=== PATIENT | female | born 1955 | race Caucasian/White ===

== ENCOUNTER 2022-11-23 10:40 | Outpatient (AMB) | payer OTHER, SELFPAY ==
--- NOTE | 2022-11-23 11:04 | MHC.OFFVIS ---
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 Capellan for left knee pain. Hx of right total knee replacement with Dr. Capellan. States she has ongoing pain in knee for many years. She describes her left knee pain as sharp and severe in nature, 01/01. Her left knee pain has gotten worse over the last few years in spite of continued non operative treatments. She has tried Tylenol and anti-inflammatory medicines which gave her minimal relief. She has also done physical therapy for 12 weeks over the last 6 months which aggravated her pain. She has had multiple injections. The most recent injection gave her minimal relief. The patient has difficulty walking even short distances because of her pain. At this point her left knee pain is interfering with her activities of daily living and her ability to sleep well through the night. Allergies buprenorphine [From Suboxone] Allergy (Mild, Verified 11/23/22 11:11) unknow codeine Allergy (Mild, Verified 11/23/22 11:11) vomitting latex Allergy (Mild, Verified 11/23/22 11:11) hives naloxone [From Suboxone] Allergy (Mild, Verified 11/23/22 11:11) unknow Medication List - Last Reconciled 11/23/22 by Neil Capellan MD atorvastatin 20 mg PO BEDTIME levothyroxine 13 mcg PO DAILY linaclotide (Linzess) 72 mcg PO DAILY methocarbamol 500 mg PO BEDTIME milnacipran (Savella) 12.5 mg PO DAILY omeprazole 10 mg PO DAILY [facility] Surgical History (Updated 11/23/22 @ 11:12 by NATE Liriano) History of total right knee replacement Social History (Updated 11/23/22 @ 11:11 by NATE Liriano) Current occupational status: disabled 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 Physical Exam Vital Signs: BMI result Body Mass Index 32.6 Const Other: Well-nourished well-developed very friendly female awake alert and oriented x3 in no acute distress Extrem Other: Bilateral lower extremity examination shows good capillary refill, no skin lesions noted, normal sensation light touch Left knee examination shows a minimal effusion, palpable crepitus with range of motion, pain with range of motion, range of motion from -3 degrees to 115 degrees, no instability Results Reviewed Results Reviewed: X-rays of the patient's left knee show severe degenerative joint disease with grade 4 [id number] arthritis, subchondral sclerosis, osteophyte formation, no acute bony abnormalities Assessment & Plan Assessment & Plan (1) Arthritis of left knee: Code(s): M17.12 - Unilateral primary osteoarthritis, left knee Plan: Ms. Del Rosario presents with progressively worsening left knee pain due to end-stage degenerative joint disease. I had a lengthy discussion patient regarding the treatment options. At this point the patient has failed continued non operative treatments. The risks and benefits of left total knee replacement surgery were discussed at length with the patient. The patient wishes to proceed with surgery later this year or early next year. She will contact my office to pick a surgery date when she is ready to do so. I will see her back 1 week prior to her surgery to answer any final questions that she might have. Feel free to call me at any time should questions regarding her orthopedic management arise. Thank you very much for asking me to see this very friendly patient. I spent 22 minutes in reviewing the patient's records and imaging studies, seeing the patient and documenting in the medical record. Orders: Orders XR knee LT 3V Today M25.562 - Pain in left knee Coding Level of Care Code Est Pt Level 2 (26439) Diagnoses Arthritis of left knee M17.12
[2022-11-23 11:09] VITALS: BMI 32.6
== END 2022-11-23 11:33 | disposition home or self-care (01) ==
PROVIDERS: PCP Internal Medicine; Visit Provider Orthopaedic Surgery
DX: M17.12 Unilateral primary osteoarthritis, left knee (principal)
CPT/HCPCS: 99212

== ENCOUNTER 2022-11-23 13:34 | Outpatient (REF) | payer OTHER, SELFPAY ==
--- NOTE | ~2022-11-23 | XR_ITS ---
EXAMINATION: XR KNEE, LEFT CLINICAL INFORMATION: Pain in left knee COMPARISON: None available. TECHNIQUE: Four views of the left knee. FINDINGS: No fracture. Probable small joint effusion.. There is moderate narrowing of the medial and patellofemoral joint compartment with large marginal osteophytes extending off the medial joint compartment. No abnormal soft tissue calcification. XR/XR knee LT 3V IMPRESSION: Moderate osteoarthritis.
== END 2022-11-23 13:35 | disposition home or self-care (01) ==
LOC: HO.HOSX 13:34
PROVIDERS: Visit Provider Orthopaedic Surgery
DX: M17.12 Unilateral primary osteoarthritis, left knee (principal)
CPT/HCPCS: 73562; 99212

== ENCOUNTER 2025-02-23 | Outpatient (REF) | payer OTHER, SELFPAY ==
--- OUTSIDE RECORDS SUMMARY | 2023-11-08 03:30 | XMS_ITS ---
Author Organization [facility] Address [address] [facility] [place] [address] Care Team Providers Care Diamond Cleaner Name Role Phone El Callejas Primary Care Provider Dannielle Echevarria [phone] Encounters Encounter Location Date Provider Diagnosis [address] [address] 11/08/2023 Dannielle Robles Plan Of Treatment No Information Progress Notes * [place] PLATAOB:1955 ( 69 yo F)Acc No.[id number]:11/08/2023 Progress Notes Patient: Leslie PAGE Provider: Lance Robles DPM :1955 A ge:68 Y S ex:Female Date:11/08/2023 Address:[address] [place], [place] [id number] Pcp:El Callejas Subjective: * Chief Complaints: * * Medical History: Objective: * Vitals: Assessment: Plan: * Treatment: * Images: * The named appointment provid er may or may not be the originator of this progress note, and it is not deemed complete until electronically signed by the appointment provider. Sign off status: Pending * Provider: Lance Robles DPM Date: 0 11/08/2023 Generated for Victor Manueli ford/Anahy/eTransmitting on: 0 04/15/2025 11:24 AM EST
--- OUTSIDE RECORDS SUMMARY | 2023-12-31 15:39 | XMS_ITS | Encounter Summary ---
Author Organization [facility] Address [address] [place] [address] Care Team Providers Care Oilseed Meat Presser Name Role Phone El Callejas MD Primary Care Provider [phone] Encounter Details Date Type Department Care Team (Latest Contact Info) Description 12/31/2023 4:39 PM EDT Hospital Encounter TH HISTORIC ENCOUNTERS EASTERN CONVERSION ONLY Lamont Oconnor DO [address] [facility] [address] [place] [address] Spondylolisthesis, lumbosacral region Social History Tobacco Use Types Packs/Day Years Used Date Smoking Tobacco: Former Cigarettes 0.5 9 0 1973 - 1982 Smokeless Tobacco: Never Alcohol Use Standard Drinks/Week Comments No 0 (1 standard drink = 0.6 oz pur e alcohol) Housing Instability Answer Date Recorde d Are you worried that in the next 2 months you may not have stable housing? No 07/08/2024 Food Access & Nutrition Answer Date Rec orded Do you have access to a vari ety of food including fruits and vegetables? Yes 07/08/2024 Access to Healthcare Answer Date Record ed Within the last 3 months, chantell tsai many times did you visit the emergency department for your medical care? 0 07/08/2024 Health Literacy Answer Date Recorded How often do you need to hav e someone help you when you read instructions, pamphlets, or other written material from your doctor or pharmacy? Never 07/08/2024 Caregiver: How often do you need to have someone help you when you read instructions, pamphlets, or other written material from your doctor or pharmacy? Not on file 07/08/2024 Financial Risk Answer Date Recorded How hard is it for you to pa y for the very basics like food, housing, medical care, and air conditioning / heating? Not very hard 07/08/2024 Transportation Answer Date Recorded Has the lack of transportati on kept you from meetings, work, or from getting things needed for daily living? No Has the lack of transportati on kept you from medical appointments or from getting medications? No 07/08/2024 Social Isolation Answer Date Recorded How often do you feel lonely or isolated from th ose around you? Rarely 07/08/2024 Food Risk Answer Date Recorded Within the past 12 months we worried whether our food would run out before we got money to buy more. Never true 07/08/2024 Within the past 12 months th e food we bought just didn't last and we didn't have money to get more. Never true 07/08/2024 Dependent Care Answer Date Recorded Do you need help finding or paying for care for your loved ones. For example, child specialist or elderly care for an older adult? No 07/08/2024 Education Answer Date Recorded Do you think completing more education or training, like finishing a GED, going to college, or learning a trade, would be helpful for you? No 07/08/2024 Employment and Income Answer Date Recor ded During the last four weeks, have you been actively looking for work? No 07/08/2024 Living Situation Answer Date Recorded What is your living situation? Unrecognized valu e 07/08/2024 Comments No Sex and Gender Information Value Date Recorded Sex Assigned at Not on file Legal Sex Female 9:04 PM EST Gender Identity Not on file Sexual Orientation Not on file documented as of this encounter Plan of Treatment Upcoming Encounters Date Type Department Care Team (Late st Contact Info) Description 12/20/2025 10:30 AM EDT Office Visit Gastroenterology - [address] [id number] Liliana Cosby PA [address] [address] documented as of this encounter Procedures Procedure Name Priority Date/Time Associated Diagnosis Comments CR SPINE LUMB FLEX AND EXTEN Routine 01/01/2024 7:55 AM EDT Spondylolisthesis, lumbosacral region documented in this encounter Results * CR SPINE LUMB FLEX AND EXTEN (01/01/2024 7:55 AM EDT) Anatomical Region Laterality Modality Radiographic Hellen ging 12/31/2023 4:47 PM EDT Narrative 01/01/2024 7:55 AM EDT [facility] Diagnostic Imaging Department [address] [place] [address] Patient: SHERLYNLESLIE /Age/Sex: 1955 - 68 - F Unit#: [id number] Location/Status: SPDIGEN/REG CLI Mnemonic/[facility] Order[facility] Physician: LAMONT OCONNOR DO CR Spine Lumb Flex and Exten - 12/31/23 - 170 Report Status:Signed HISTORY: The patient is a 68-year-old female with spondylolisthesis at the L5-S1 level. FINDINGS: Lateral radiographs of the lumbosacral spine in neutral, flexion, and extension positions is performed. The study demonstrates grade 2, 1.2 cm anterior spondylolisthesis of L5 relative to S1 measuring 1.2 cm on the extension and neutral views and 1.5 cm with flexion. The alignment of the bony structures is otherwise anatomic on lateral projection. No fracture is seen. No osteolytic or osteoblastic lesion is demonstrated. Spondylolysis of L5 is strongly suspected. There is narrowing of the L3-4, L4-5, and L5-S1 disc spaces consistent with degenerative disc disease. Densities in the abdomen are consistent with oral contrast material within colonic diverticuli. IMPRESSION: Grade 2 anterior spondylolisthesis of L5 relative to S1 measuring 1.2 cm on the extension and neutral views, and increasing to 1.5 cm with flexion. Spondylolysis of L5 is strongly suspected. There is degenerative disc disease at the L3-4, L4-5, and L5-S1 levels. Code 58909 Dictating Physician: SAGE GARCIA MD Electronically Signed by: SAGE GARCIA MD Dic Date/Time: 01/01/24 075 Sign date/Time: 01/01/24 075 Procedure Note Sage Garcia MD - 01/21/2024 [facility] Diagnostic Imaging Department [address] [place], [place] [id number] Patient: LESLIE PLATA /Age/Sex: 1955 - 68 - F Unit#: [id number] Location/Status: SPDIGEN/REG CLI Mnemonic[facility] Ordering Physician: LAMONT OCONNOR DO CR Spine Lumb Flex and Exten - 12/31/23 - 1702 Report Status:Signed HISTORY: The patient is a 68-year-old female with spondylolisthesis at theL5-S1 level. FINDINGS: Lateral radiographs of the lumbosacral spine in neutral,flexion, and extension positions is performed. The study demonstrates grade 2, 1.2 cm anterior spondylolisthesis of L5 relative to S1 measuring 1.2 cm on the extension and neutral views and 1.5 cm with flexion. The alignment of thebony structures is otherwise anatomic on lateral projection. No fracture isseen. No osteolytic or osteoblastic lesion is demonstrated. Spondylolysis of L5is strongly suspected. There is narrowing of the L3-4, L4-5, and L5-S1 discspaces consistent with degenerative disc disease. Densities in the abdomen are consistent with oral contrast materialwithin colonic diverticuli. IMPRESSION: Grade 2 anterior spondylolisthesis of L5 relative to [id number] 1.2 cm on the extension and neutral views, and increasing to 1.5 cm with flexion. Spondylolysis of L5 is strongly suspected. There is degenerativedisc disease at the L3-4, L4-5, and L5-S1 levels. Code 56008 Dictating Physician: SAGE GARCIA MD Electronically Signed by: SAGE GARCIA MD Dic Date/Time: 01/01/24 0750 Sign date/Time: 01/01/24 0755 Lamont Oconnor DO IMG XR PROCEDURES Final Result documented in this encounter Visit Diagnoses Diagnosis Spondylolisthesis, lumbosacral region documented in this encounter Care Teams Oilseed Meat Presser Relationship Specialty Start Date End Date El Callejas MD [address] [place] [address] PCP - General Internal Medicine 01/26/21 documented as of this encounter
--- NOTE | ~2025-02-23 | XR_ITS ---
EXAMINATION: XR KNEE 3 VIEWS LEFT HISTORY: M25.562 - Pain in left knee COMPARISON: Comparison is made with the prior examination dated 11/23/2022. FINDINGS: Four views of the left knee are submitted. Osseous mineralization is normal. There is no fracture or dislocation. There is severe osteoarthritis of the lateral compartment with joint space narrowing and osteophyte formation. There is moderate osteoarthritis of the patellofemoral compartment. The soft tissues are unremarkable. There is no joint effusion. XR/XR knee LT 3V IMPRESSION: Osteoarthritis of the left knee as described. Electronically signed by: Juarez Lopez MD 02/23/2025 08:58 AM [facility]
--- OUTSIDE RECORDS SUMMARY | 2025-04-13 10:00 | XMS_ITS | Encounter Summary ---
Author Organization [facility] Address [address] [place] [address] Care Team Providers Care Trousseau Consultant Name Role Phone El Callejas MD Primary Care Provider [phone] Reason for Referral * Imaging (Routine) - Pending Review Specialty Diagnoses / Procedures Referred By Shira howard Referred To Contact Cardiology Diagnoses Pre-op testing Heart murmur Procedures Transthoracic echocardiogram (TTE) complete with PRN contrast, bubble, strain, and 3D order panel OK TTE W 2D IMAGE COMPLETE W DOPPLER ECHO & COLOR FLOW DOPPLER ECHO OK TERESE 2D COMPLETE W/CONTRAST OR W & WO CONTRAST WITH DOPPLER El Callejas MD [address] [place] [address] Phone: tel: fax: [facility] Referral ID Status Reason Start Date Expiration Date V isits Requested Visits Authorized [id number] Pending Review 04/13/2025 04/13/2026 1 1 * Consultation (Routine) - Pending Review Specialty Diagnoses / Procedures Referred By Shira howard Referred To Contact Cardiology Diagnoses Abnormal EKG El Callejas MD [address] [place] [address] Phone: tel: fax: [facility] - [address] [place] [address] Phone: tel: fax: Referral ID Status Reason Start Date Expiration Date Visits Requested Visits Authorized [id number] Pending Review Specialty Services Required 04/13/2025 04/13/2026 1 1 Reason for Visit * Reason Comments Pre-op Exam Encounter Details Date Type Department Care Team (Late st Contact Info) Description 04/13/2025 10:00 AM EST Consult [facility] - [facility] [address] [place] [address] El Callejas MD [address] [place] [address] Pre-op testing (Primary Dx); Abnormal EKG; Heart murmur Social History Tobacco Use Types Packs/Day Years [...] for your loved ones. For example, child neurologist or elderly care for an older adult? [...] on file documented as of this encounter Last Filed Vital Signs Vital Sign Reading Time Taken Comments Blood Pressure 129/75 04/13/2025 10:26 AM EST Pulse 90 04/13/2025 10:01 AM EST Temperature - - Respiratory Rate - - Oxygen Saturation - - Inhaled Oxygen Concentration - - Weight 96.8 kg (213 lb 4.8 oz) 04/13/2025 10:01 AM EST Height 160 cm (5' 3 ) 04/13/2025 10:01 AM EST Body Mass Index 37.78 04/13/2025 10:01 AM EST documented in this encounter Progress Notes * El Callejas MD - 04/13/2025 10:00 AM EST Referring MD: Neil Capellan MD HPI: Ms. Del Rosario is a 69 y.o. year old female who is scheduled for left total knee replacement scheduled on 05/24/[address] Bernardo Capellan. She is here today for pre-operative consultation. Her functional status is greater than 4 METs as she can climb 2 flight of stairs without having any chest pain or shortness of breath. She has not had problems with anesthesia or bleeding. ROS: GENERAL: Negative for malaise, significant weight loss and fever HEENT: No changes in hearing or vision. No nosebleeds or other nasal problems NECK: Negative for lumps, goiter, pain, and significant neck swelling RESPIRATORY: No cough, wheezing or shortness of breath CARDIOVASCULAR: Negative for chest pain, leg swelling and palpitations GI: Negative for abdominal discomfort, changes in bowel habits, blood in stool or black stools : Negative for dysuria, frequency, and incontinence MUSCULOSKELETAL: Negative for joint pain or swelling, back pain and muscle pain. SKIN: No lesions, rash, or itching HEMATOLOGY/LYMPHOLOGY: No prolonged bleeding, easy bruising, or swollen lymph nodes ENDOCRINE: Negative for cold or heat intolerance, polyuria, polydipsia and goiter NEURO: No persistent headache, fainting, seizures, strokes, TIAs, weakness, numbness or tingling The remainder of review of systems is noncontributory. PAST MEDICAL HISTORY: Patient Active Problem List Diagnosis Date Noted Aortic stenosis 10/07/2024 Hiatal hernia 11/28/2023 Chronic back pain 11/28/2023 Allergic rhinitis 11/28/2023 History of depression 11/28/2023 Chronic sinusitis 05/28/2023 COVID 06/23/2021 Osteoarthritis, knee 11/15/2020 Prediabetes 11/07/2020 Varicose veins of both lower extremities with pain 02/02/2019 IBS (irritable bowel syndrome) 10/16/2018 Chronic headache disorder 10/16/2018 RLS (restless legs syndrome) 05/30/2018 Fibromyalgia 05/31/2015 Obstructive sleep apnea 02/14/2015 Hypothyroidism 07/20/2014 Hyperlipidemia 07/20/2014 GERD (gastroesophageal reflux disease) 07/20/2014 SOCIAL HISTORY: Social History Tobacco Use Smoking status: Former Current packs/day: 0.00 Average packs/day: 0.5 packs/day for 9.0 years (4.5 ttl pk-yrs) Types: Cigarettes Start date: 1973 Quit date: 1982 Years since quittin.7 Smokeless tobacco: Never Substance Use Topics Alcohol use: No FAMILY HISTORY: Family Status Relation Name Status Mother at age 76 Father Alive Brother Mitch at age 62 Brother joshua Daughter Alive Son Alive Neg Hx (Not Specified) No partnership data on file Family History[1] ACTIVE MEDICATIONS: Medications Taking[2] ALLERGIES: Buprenorphine-naloxone; Codeine; Levonorgestrel-ethinyl estrad; Pollen extracts; and Latex, naturalrubber PHYSICAL EXAM: Blood pressure 129/75, pulse 90, height 1.6 m (63 ), weight 96.8 kg (213 lb 4.8 oz). Body mass index is 37.78 kg/m??. APPEARANCE: Alert and in no acute distress, Normal, healthy, cooperative EYES: PERRLA, conjunctiva and sclera normal and normal fundal exam EARS: External ears normal. Canals clear. TMs normal. NOSE/SINUS: Nares normal. Septum midline. Mucosa normal. No drainage or sinus tenderness MOUTH/THROAT: no erythema, lesions, or exudates NECK: Neck supple, no adenopathy, thyroid symmetric and of normal size HEART: RRR with normal S1 and S2, no murmurs, no gallops, no JVD appreciated CHEST: non-tender LUNG: clear to auscultation bilaterally LYMPH NODES: grossly normal ABDOMEN: Bowel sounds normoactive, no bruits and soft, non-tender, without organomegaly or palpablemasses BACK: no pain to palpation and good flexion and extension EXTREMITIES: Extremities warm and well perfused without clubbing, cyanosis, or edema NEURO: Awake, alert and oriented x 3 and reflexes symmetrical SKIN: Skin color, texture, turgor normal. No rashes or lesions. LABS: Lab Results Component Value Date WBC 6.4 04/05/2025 HGB 13.2 04/05/2025 HCT 43.6 04/05/2025 MCV 83.4 04/05/2025 Lab Results Component Value Date NA 139 04/05/2025 K 4.6 04/05/2025 CO2 28 04/05/2025 CL 100 04/05/2025 BUN 21 04/05/2025 No results found for: INR , PTT Testing:acceptable EKG: unchanged from previous tracings, normal sinus rhythm. ASSESSMENT AND PLAN: 1. Pre-op testing 2. Abnormal EKG 3. Heart murmur Cardiac - Ms. Del Rosario clinical risk factors include none and female is scheduled for a intermediate risk procedure. Her functional capacity is estimated to be greater than 4 METs. She is, therefore, estimated to have an acceptable risk for the proposed procedure. Further cardiac workup is not warranted. Beta blockade perioperatively is not needed. Patient's EKG is unchanged from previous tracing. Has been previously worked up in the past for abnormal EKG but has not seen cardiology. Will refer patient to cardiology. Also has a heart murmur. Will order echocardiogram for further evaluation. Pulmonary - Her pulmonary risk factors include age > 50. Early ambulation and use of incentive spirometry, when appropriate, are encouraged. Medications - All scheduled inhaled medications should be taken the morning of surgery. NSAIDs ( ) should be discontinued at least 3 days before surgery. Please do not hesitate to contact me with any questions or concerns. Thank you for the courtesy of this consultation. El Callejas MD on 04/13/2025 at 11:01 AM EST cc: Neil Capellan MD [1] Family History Problem Relation Name Age of Onset Other (Other: Other) Mother multiple issues lots of pain, unsure exactly of what problems Arthritis Mother Arthritis Father Colon cancer Brother Mitch 61 Coronary artery disease Brother joshua ? Breast cancer Daughter 25 double mastectomy, reconstruction Ovarian cancer Neg Hx Uterine cancer Neg Hx [2] Outpatient Medications Marked as Taking for the 04/13/25 encounter (Consult) with El Callejas MD Medication Sig Dispense Refill atorvastatin (LIPITOR) 20 mg tablet TAKE 1 TABLET BY MOUTH DAILY 90 tablet 1 calcium carbonate 1,500 mg (600 mg elemental calcium) tablet Take 2 tablets (3,000 mg total) by mouth 1 (one) time each day. cholecalciferol (VITAMIN D-3) 25 mcg (1,000 unit) tablet TAKE 2 TABLETS BY MOUTH DAILY 180 tablet 1 cyanocobalamin (VITAMIN B-12) 1,000 mcg tablet TAKE 1 TABLET BY MOUTH 1 TIME EACH DAY 90 tablet 1 levothyroxine (SYNTHROID, LEVOTHROID) 150 mcg tablet TAKE 1 TABLET(150 MCG) BY MOUTH 1 TIME EACH DAY 90 tablet 1 Linzess 290 mcg capsule TAKE 1 CAPSULE(290 MCG) BY MOUTH 1 TIME EACH DAY 30 capsule 5 meclizine (ANTIVERT) 12.5 mg tablet Take 1 tablet (12.5 mg total) by mouth. methocarbamoL (ROBAXIN) 500 mg tablet Take 1 tablet (500 mg total) by mouth. omega-3 acid ethyl esters (LOVAZA) 1 gram capsule Take 1 capsule (1 g total) by mouth 1 (one) time each day. pantoprazole (PROTONIX) 40 mg EC tablet TAKE 1 TABLET BY MOUTH DAILY 90 tablet 1 sodium chloride (Fede 128) 2 % ophthalmic solution USE ONE DROP INTO BOTH EYES TID sodium chloride 5 % ophthalmic ointment APPLY INTO BOTH EYES QHS turmeric/turmeric ext/pepr ext (turmeric-turmeric ext-pepper) 500-3 mg capsule Take 1,000 mg by mouth. Ventolin HFA 90 mcg/actuation inhaler INHALE 2 PUFFS BY MOUTH EVERY 4 HOURS NEEDED FOR COUGH OR WHEEZING OR SHORTNESS OF BREATH 18 g 1 documented in this encounter Plan of Treatment Upcoming Encounters Date Type Department Care Team (Late st Contact Info) Description 12/20/2025 10:30 AM EDT Office Visit Gastroenterology - [address] [facility] [address] [place] [address] Liliana Cosby PA [address] [place] [address] Scheduled Orders Name Type Priority Associated Diagnoses Order Schedule Transthoracic echocardiogram (TTE) complete with PRN contrast, bubble, strain, and 3D order panel Echocardiography Routine Pre-op testing Heart murmur 1 Occurrences starting 04/13/2025 until 04/13/2026 Scheduled Referrals Name Type Priority Associated Diagnoses Order Schedule Ambulatory referral to Cardiology Outpatient Referral Routine Abnormal EKG 1 Occurrences starting 04/13/2025 until 04/13/2026 documented as of this encounter Procedures Procedure Name Priority Date/Time Associated Diagnosis Comments ECG 12-LEAD Routine 04/13/2025 10:03 AM EST Pre-op testing documented in this encounter Results * ECG 12 lead (04/13/2025 10:03 AM EST) Narrative El Callejas MD - 04/13/2025 11:01 AM EST Ordered and reviewed by Dr Callejas El Callejas MD ECG ORDERABLES Final Result documented in this encounter Visit Diagnoses Diagnosis Pre-op testing- Primary Unspecified pre-operative examination Abnormal EKG Nonspecific abnormal electrocardiogram (ECG) (EKG) Heart murmur Undiagnosed cardiac murmurs documented in this encounter Additional Health Concerns Assessment Noted Time PHQ-9 Depression Total Score: 0 07/09/19 25 1:21 PM EDT documented as of this encounter Care Teams Trousseau Consultant Relationship Specialty Start Date End Date El Callejas MD [address] [place] [address] PCP - General Internal Medicine 01/26/21 documented as of this encounter
--- OUTSIDE RECORDS SUMMARY | 2025-04-15 11:24 | XMS_ITS | Clinical Summary ---
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 8 Active methocarbamoL (ROBAXIN) 500 mg tablet Take 1 tablet (500 mg total) by mouth. 2 Active omega-3 acid ethyl esters (LOVAZA) 1 gram capsule Take 1 capsule (1 g total) by mouth 1 (one) time each day. 3 Active sodium chloride (Fede 128) 2 % ophthalmic solution USE ONE DROP INTO BOTH EYES TID 9 Active sodium chloride 5 % ophthalmic ointment APPLY INTO BOTH EYES QHS 9 Active turmeric/turmer ic ext/pepr ext (turmeric-turme yaniv ext-pepper) 500-3 mg capsule Take 1,000 mg by mouth. 2 Active calcium carbonate 1,500 mg (600 mg elemental calcium) tablet Take 2 tablets (3,000 mg total) by mouth 1 (one) time each day. Active milnacipran (Savella) 100 mg tablet Take 1 tablet (100 mg total) by mouth 2 (two) times a day. 180 tablet 1 5 Active levothyroxine (SYNTHROID, LEVOTHROID) 150 mcg tablet TAKE 1 TABLET(150 MCG) BY MOUTH 1 TIME EACH DAY 90 tablet 1 5 Active fezolinetant 45 mg tabletIndicatio ns:Menopausal hot flushes Take 1 tablet by mouth 1 (one) time each day. 30 tablet 5 5 05/31/19 26 Active Additional Information Patient not taking.Reported on 03/24/2025 cholecalciferol (VITAMIN D-3) 25 mcg (1,000 unit) tablet TAKE 2 TABLETS BY MOUTH DAILY 180 tablet 1 5 Active pantoprazole (PROTONIX) 40 mg EC tablet TAKE 1 TABLET BY MOUTH DAILY 90 tablet 1 5 Active cyanocobalamin (VITAMIN B-12) 1,000 mcg tablet TAKE 1 TABLET BY MOUTH 1 TIME EACH DAY 90 tablet 1 5 Active Linzess 290 mcg capsule TAKE 1 CAPSULE(290 MCG) BY MOUTH 1 TIME EACH DAY 30 capsule 5 5 Active Ventolin HFA 90 mcg/actuation inhaler INHALE 2 PUFFS BY MOUTH EVERY 4 HOURS NEEDED FOR COUGH OR WHEEZING OR SHORTNESS OF BREATH 18 g 1 5 Active atorvastatin (LIPITOR) 20 mg tablet TAKE 1 TABLET BY MOUTH DAILY 90 tablet 1 5 Active polyethylene glycol (MIRALAX) 17 gram packet Take 17 g by mouth 1 (one) time each day for 3 days. 51 g 3 5 03/27/19 26 Active Problems Problem Noted Date Diagnosed Date [...] Encounters Date Type Department Care Team Description 04/13/2025 10:00 AM EST Consult Internal Medicine - [address] [address] [place] [address] El Callejas MD Pre-op testing (Primary Dx); Abnormal EKG; Heart murmur 04/07/2025 5:56 PM EST - 04/07/2025 6:[address] [facility] Emergency [address] [place] [address] Epistaxis (Primary Dx) Discharge Disposition: Home or Self Care 04/05/2025 8:40 AM EST Lab Draw Station - [place] [address] [facility] [place] [address] Pre-op testing 04/05/2025 7:05 AM EST - 04/05/2025 11:59 PM EST Hospital Encounter [facility] CT Scan [address] [facility] [place] [phone] Upper abdominal pain Discharge Disposition: Home or Self Care 04/05/2025 Results [facility] [place] [phone] El Callejas MD 03/24/2025 11:30 AM EST Lab Draw Station - [place] [facility] [place] Upper abdominal pain; B12 deficiency 03/24/2025 11:00 AM EST Office Visit Internal Medicine - [address] [place] [phone] Cecil Sheth PA Upper abdominal pain (Primary Dx) 03/24/2025 Results Follow-Up Internal Medicine - [address] [place] [phone] Gloria Mckeon MA 02/15/2025 Telephone Internal Medicine - [address] [place] [phone] El Callejas MD 02/08/2025 Telephone Obstetrics and Gynecology - [address] [phone] Adelita Zuniga DO 01/19/2025 Telephone Internal Medicine - [address] [phone] El Callejas MD from Last 3 Months Immunizations Immunization Administration Dates Next Due Influenza Quadravalent, 0.5m l (Fluzone High-dose) 65yo and older 12/26/2021,01/12/2021,11/22/2018,2017,12/20/2016,12/24/2015 Influenza trivalent, 0.5mL ( Fluzone High-dose) 65yo and older 12/10/2022 Influenza trivalent, 0.5mL, preservative free (Fluarix; FluLaval; Fluzone) ages 6mo and older (Afluria) 3 years and older 11/10/2019,12/16/2017,12/20/2016,2015 Influenza trivalent, with preservative (Fluzone; Afluria) 6mo and older 02/02/2018,12/05/2014 Influenza, Unspecified 11/28/2023 [employer] SARS-CoV-2 COVID-19, mRNA, LNP-S, preservative free 12/09/2021,01/22/2021,07/09/2020,2020 [...] year repeat UPPER GASTROINTESTINAL ENDOSCOPY 09/24/2016 PROCEDURE: ND UPPER GI ENDOSCOPY PERFORMED; COMMENT: Performed on treatment with omeprazole; minimal antral gastritis; 4 cm hiatal hernia; CLOtest: OTHER SURGICAL HISTORY 08/2017 PROCEDURE: REPAIR PARAESOPHAGEAL HERNIA CHOLECYSTECTOMY 08/2017 PROCEDURE: HISTORICAL CHOLECYSTECTOMY; COMMENT: lap drake and repair HH. COLONOSCOPY 12/11/2018 PROCEDURE: HISTORICAL COLONOSCOPY; COMMENT: no polyps TOTAL KNEE ARTHROPLASTY 11/14/2020 Right PROCEDURE: ND ARTHRP KNE CONDYLE&PLATU MEDIAL&LAT COMPARTMENTS TOTAL KNEE ARTHROPLASTY Right PROCEDURE: HISTORICAL TOTAL KNEE REPLACE APPENDECTOMY PROCEDURE: ND APPENDECTOMY OTHER SURGICAL HISTORY Posterior laminectomy decompression [...] for your loved ones. For example, child life therapist or elderly care for an older adult? [...] Pulse 90 04/13/2025 10:01 AM EST Temperature 36.9 C (98.4 F) 04/07/2025 5:46 PM EST Respiratory Rate 16 04/07/2025 5:46 PM EST Oxygen Saturation 99% 04/07/2025 5:46 PM EST Inhaled Oxygen Concentration - - Weight 96.8 kg (213 lb 4.8 oz) 04/13/2025 10:01 AM EST Height 160 cm (5' 3 ) 04/13/2025 10:01 AM EST Body Mass Index 37.78 04/13/2025 10:01 AM EST Plan of Treatment Upcoming Encounters Date Type Department Care Team (Late st Contact Info) Description 12/20/2025 10:30 AM EDT Office Visit Gastroenterology - [address] [facility] [address] [place] [address] Liliana Cosby PA [address] [place] [address] Health Maintenance Due Date Last Done Comments Medicare Annual Wellness Visit 03/02/2022 Colorectal Cancer Screening: Colonoscopy 12/12/2023 12/11/2018, 12/11/2018 COVID-19 Vaccine ( season) 2024 12/09/2021, 01/22/2021, 07/09/2020, Additional history exists Influenza Vaccine (#1) 2024 , 12/10/2022, 12/26/2021, Additional history exists Depression Screening 03/25/2025 10/06/2024 Breast Cancer Screening 06/05/2025 06/06/19 24, 11/06/2022, [...] 11/27/2017 Pneumococcal Vaccine: 50+ Years Completed 12/10/2022 HIB Vaccines Aged Out No longer eligi [...] Routine 04/13/2025 10:03 AM EST Pre-op testing CBC WITH AUTO DIFFERENTIAL Routine 04/05/2025 8:51 AM EST Pre-op testing BASIC METABOLIC PANEL Routine 04/05/2025 8:51 AM EST Pre-op testing CBC AND DIFFERENTIAL Routine 04/05/2025 8:51 AM EST Pre-op testing CT ABDOMEN PELVIS WO CONTRAST Routine 04/05/2025 7:28 AM EST Upper abdominal pain CBC WITH AUTO DIFFERENTIAL Routine 03/24/2025 11:49 AM EST Upper abdominal pain VITAMIN B12 Routine 03/24/2025 11:49 AM EST B12 deficiency AMYLASE Routine 03/24/2025 11:49 AM EST Upper abdominal pain LIPASE Routine 03/24/2025 11:49 AM EST Upper abdominal pain CBC AND DIFFERENTIAL Routine 03/24/2025 11:49 AM EST Upper abdominal pain LIPID PANEL WITH REFLEX TO DIRECT LDL Routine 07/15/2024 9:13 AM EDT Mixed hyperlipidemia DIAGNOSTIC MAMMOGRAPHY INCLUDING CAD BILATERAL Routine 06/06/2023 1:39 PM EDT Other abnormal and inconclusive findings on diagnostic imaging of breast DXA BONE DENSITY STUDY 1+ SITS AXIAL SKEL Routine 10/18/2022 4:04 PM EDT Encounter for gynecological examination (general) (routine) without abnormal findings HM COLONOSCOPY Routine 12/11/2018 HEPATITIS C SCREENING Routine 01/30/2016 from Last 3 Months or Most Recently Relevant to Health Maintenance Results * ECG 12 lead (04/13/2025 10:03 AM EST) El Maxwell MD - 04/13/2025 11:01 AM EST Ordered and reviewed by Dr Callejas El Callejas MD ECG ORDERABLES Final Result * (ABNORMAL) CBC auto differential (04/05/2025 8:51 AM EST) Only the most recent of2 resultswithin the time period is included. WBC 6.4 4.8 - 10.8 K/mcL LAB HEMETOLOGY METHOD 04/05/2025 2:22 PM EST [facility] RBC 5.20(H) 3.80 - 4.80 M/mcL LAB HEMETOLOGY METHOD 04/05/2025 2:22 PM EST [facility] Hemoglobin 13.2 11.5 - 16.0 g/dL LAB HEMETOLOGY METHOD 04/05/2025 2:22 PM [facility] Hematocrit 43.6 35.0 - 47.0 % LAB HEMETOLOGY METHOD 04/05/2025 2:22 PM [facility] MCV 83.4 79.0 - 98.0 FL LAB HEMETOLOGY METHOD 04/05/2025 2:22 PM [facility] MCH 25.2(L) 27.0 - 32.0 pcg LAB HEMETOLOGY METHOD 04/05/2025 2:22 PM [facility] MCHC 30.3(L) 32.0 - 37.0 g/dL LAB HEMETOLOGY METHOD 04/05/2025 2:22 PM [facility] RDW 14.7 11.0 - 15.0 % LAB HEMETOLOGY METHOD 04/05/2025 2:22 PM [facility] Platelets 244 130 - 400 K/mcL LAB HEMETOLOGY METHOD 04/05/2025 2:22 PM [facility] MPV 12.1(H) 7.0 - 11.0 FL LAB HEMETOLOGY METHOD 04/05/2025 2:22 PM [facility] NRBC 0.0 <1.0 % LAB HEMETOLOGY METHOD 04/05/2025 2:22 PM [facility] NRBC Absolute 0.00 <0.10 K/mcL LAB HEMETOLOGY METHOD 04/05/2025 2:22 PM [facility] Neutrophils Relative 58.0 % LAB HEMETOLOGY METHOD 04/05/2025 2:22 PM [facility] Lymphocytes Relative 30.6 % LAB HEMETOLOGY METHOD 04/05/2025 2:22 PM [facility] Monocytes Relative 8.6 % LAB HEMETOLOGY METHOD 04/05/2025 2:22 PM [facility] Eosinophils Relative 1.4 % LAB HEMETOLOGY METHOD 04/05/2025 2:22 PM [facility] Basophils Relative 0.9 % LAB HEMETOLOGY METHOD 04/05/2025 2:22 PM [facility] Immature Granulocytes Relative 0.5 % LAB HEMETOLOGY METHOD 04/05/2025 2:22 PM [facility] Neutrophils Absolute 3.69 1.50 - 7.00 K/mcL LAB HEMETOLOGY METHOD 04/05/2025 2:22 PM [facility] Lymphocytes Absolute 1.95 1.00 - 5.00 K/mcL LAB HEMETOLOGY METHOD 04/05/2025 2:22 PM [facility] Monocytes Absolute 0.55 0.20 - 1.00 K/mcL LAB HEMETOLOGY METHOD 04/05/2025 2:22 PM [facility] Eosinophils Absolute 0.09 0.00 - 0.50 K/mcL LAB HEMETOLOGY METHOD 04/05/2025 2:22 PM [facility] Basophils Absolute 0.06 0.00 - 0.20 K/mcL LAB HEMETOLOGY METHOD 04/05/2025 2:22 PM [facility] Immature Granulocytes Absolute 0.03 0.00 - 0.03 K/mcL LAB HEMETOLOGY METHOD 04/05/2025 2:22 PM [facility] Blood Venous blood specimen / Unknown Venipuncture / Unknown 04/05/2025 8:51 AM EST 04/05/2025 8:51 AM EST us El Callejas MD LAB BLOOD ORDERABLES Final Resu lt [facility] [address] [place] [address], * (ABNORMAL) Basic metabolic panel (04/05/2025 8:51 AM EST) Sodium 139 133 - 145 mmol/L 04/05/2025 1:41 PM [facility] Potassium 4.6 3.5 - 5.5 mmol/L 04/05/2025 1:41 PM [facility] Chloride 100 96 - 110 mmol/L 04/05/2025 1:41 PM [facility] CO2 28 21 - 32 mmol/L 04/05/2025 1:41 PM [facility] Anion Gap 11 3 - 11 04/05/2025 1:41 PM [facility] Glucose 106(H) 70 - 100 mg/dL 04/05/2025 1:41 PM [facility] BUN 21 5 - 25 mg/dL 04/05/2025 1:41 PM [facility] Creatinine 0.73 0.50 - 1.10 mg/dL 04/05/2025 1:41 PM [facility] eGFR 90 >=60 mL/min/1. 73m2 04/05/2025 1:41 PM [facility] Comment:Calculation based on the Chronic Kidney Disease Epidemiology Collaboration (CKD-EPI) equation refit without adjustment for race. BUN/Creatinine Ratio 28.8 04/05/2025 1:41 PM [facility] Calcium 10.0 8.5 - 10.5 mg/dL 04/05/2025 1:41 PM [facility] Blood Venous blood specimen / Unknown Venipuncture / Unknown 04/05/2025 8:51 AM EST 04/05/2025 8:51 AM EST us El Callejas MD LAB BLOOD ORDERABLES Final Resu lt [facility] [address] [place] [address], * CT Abdomen Pelvis wo Contrast (04/05/2025 7:28 AM EST) Anatomical Region Laterality Modality Body Computed Tomogra phy 04/13/2025 12:5 5 PM EST Impressions 04/13/2025 12:58 PM EST 1. No acute abnormality in the abdomen or pelvis. 2. Extensive diverticulosis without evidence for acute diverticulitis. -------- FINAL REPORT -------- Dictated By: Marisol Mccoy Dictated Date: 04/13/2025 12:55 ET Assigned Physician: Marisol Mccoy Reviewed and Electronically Signed By: Marisol Mccoy Signed Date: 04/13/2025 12:58 ET Workstation ID: [id number] Transcribed By: Self Edit Transcribed Date: 04/13/2025 12:55 ET Narrative 04/13/2025 12:58 PM EST PROCEDURE: CT Abdomen and Pelvis without contrast INDICATION: Abdominal pain, acute, no prior medical history TECHNIQUE: CT of the abdomen and pelvis without contrast. Multiplanar reformats. The examination was performed utilizing dose reduction techniques. DLP: 1158 mGy/cm COMPARISON: No priors available. FINDINGS: LOWER THORAX: Lung bases are clear. Aortic valvular calcifications. HEPATOBILIARY: No focal liver lesions. Cholecystectomy. SPLEEN: No splenomegaly. PANCREAS: No focal mass or ductal dilatation. ADRENALS: No nodules. KIDNEYS/URETERS: Left renal cyst measuring 6.9 cm. No mass or hydronephrosis. No nephroureteral calculus. PELVIC ORGANS/BLADDER: Unremarkable. PERITONEUM / RETROPERITONEUM: No ascites or free air. No retroperitoneal lymphadenopathy. VESSELS: Scattered atherosclerotic calcifications throughout the aorta and its major branches. No aneurysm. GI TRACT: Extensive diverticulosis without evidence for acute diverticulitis. Early diverticulitis may be occult on CT. Moderate fecal loading throughout the colon. Postsurgical changes at the diaphragmatic hiatus of suspected Stu. BONES AND SOFT TISSUES: Postsurgical changes L4-S1 with mild anterolisthesis of L5 on S1. Small fat-containing inguinal hernias. Procedure Note Marisol Mccoy MD - 04/13/2025 PROCEDURE: CT Abdomen and Pelvis without contrast INDICATION: Abdominal pain, acute, no prior medical history TECHNIQUE: CT of the abdomen and pelvis without contrast. Multiplanarreformats. The examination was performed utilizing dose reductiontechniques. DLP: 1158 mGy/cm COMPARISON: No priors available. FINDINGS: LOWER THORAX: Lung bases are clear. Aortic valvular calcifications. HEPATOBILIARY: No focal liver lesions. Cholecystectomy. SPLEEN: No splenomegaly. PANCREAS: No focal mass or ductal dilatation. ADRENALS: No nodules. KIDNEYS/URETERS: Left renal cyst measuring 6.9 cm. No mass orhydronephrosis. No nephroureteral calculus. PELVIC ORGANS/BLADDER: Unremarkable. PERITONEUM / RETROPERITONEUM: No ascites or free air. No retroperitoneallymphadenopathy. VESSELS: Scattered atherosclerotic calcifications throughout the aorta andits major branches. No aneurysm. GI TRACT: Extensive diverticulosis without evidence for acutediverticulitis. Early diverticulitis may be occult on CT. Moderate fecalloading throughout the colon. Postsurgical changes at the diaphragmatichiatus of suspected Stu. BONES AND SOFT TISSUES: Postsurgical changes L4-S1 with mildanterolisthesis of L5 on S1. Small fat-containing inguinal hernias. IMPRESSION: 1. No acute abnormality in the abdomen or pelvis. 2. Extensive diverticulosis without evidence for acute diverticulitis. -------- FINAL REPORT -------- Dictated By: Marisol Mccoy Dictated Date: 04/13/2025 12:55 ET Assigned Physician: Marisol Mccoy Reviewed and Electronically Signed By: Marisol Mccoy Signed Date: 04/13/2025 12:58 ET Workstation ID: [id number] Transcribed By: Self Edit Transcribed Date: 04/13/2025 12:55 ET Cecil PATEL IMG CT PROCEDURES Final Result * Lipase (03/24/2025 11:49 AM EST) Lipase 31 12 - 53 unit/L 03/24/2025 3:58 PM EST [facility] Blood Venous blood specimen / Unknown Venipuncture / Unknown 03/24/2025 11:49 AM EST 03/24/2025 11:49 AM EST Cecil PATEL LAB BLOOD ORDERABLES Fi nal Result Performing Organization Address [facility] de Phone Number [facility] [address] [place] [address], [place] [phone] * Vitamin B12 (03/24/2025 11:49 AM EST) Pathologist [facility] Vitamin B-12 736 211 - 911 pcg/mL 03/24/2025 3:58 PM EST [facility] Blood Venous blood specimen / Unknown Venipuncture / Unknown 03/24/2025 11:49 AM EST 03/24/2025 11:49 AM EST Cecil PATEL LAB BLOOD ORDERABLES Fi nal Result Performing Organization Address [facility] de Phone Number [facility] [address] [place] [address], [place] [phone] * Amylase (03/24/2025 11:49 AM EST) [facility] Amylase 42 25 - 115 unit/L 03/24/2025 3:57 PM EST [facility] Blood Venous blood specimen / Unknown Venipuncture / Unknown 03/24/2025 11:49 AM EST 03/24/2025 11:49 AM EST Cecil PATEL LAB BLOOD ORDERABLES Fi nal Result Performing Organization Address [facility] de Phone Number [facility] [address] [place] [address], [place] [phone] * (ABNORMAL) Lipid panel with reflex to direct LDL (07/15/2024 9:13 AM EDT) [facility] Cholesterol 149 0 - 200 mg/dL LAB CHEMISTRY METHOD 07/15/2024 1:16 PM EDT [facility] Triglycerides 174(H) 0 - 150 mg/dL LAB CHEMISTRY METHOD 07/15/2024 1:16 PM EDT [facility] HDL 52 >=40 mg/dL LAB CHEMISTRY METHOD 07/15/2024 1:16 PM EDT [facility] LDL Calculated 62 0 - 100 mg/dL LAB CHEMISTRY METHOD 07/15/2024 1:16 PM EDT [facility] VLDL Cholesterol José Luis 34.8 mg/dL LAB CHEMISTRY METHOD 07/15/2024 1:16 PM EDT [facility] Non HDL Chol. (LDL+VLDL) 97 <145 mg/dL LAB CHEMISTRY METHOD 07/15/2024 1:16 PM EDT [facility] Chol/HDL Ratio 2.9 0.0 - 4.4 LAB CHEMISTRY METHOD 07/15/2024 1:16 PM EDT [facility] Blood Venous blood specimen / Unknown Venipuncture / Unknown 07/15/2024 9:13 AM EDT 07/15/2024 9:13 AM EDT us Cecil PATEL LAB BLOOD ORDERABLES Fi nal Result [facility] [address] [place] [address], * DIAGNOSTIC MAMMOGRAPHY INCLUDING CAD BILATERAL (06/06/2023 [...] (World Health Organization Fracture Risk Assessment) [facility] recommends using National [...] years. (World HealthOrganization Fracture Risk Assessment) [facility] of Internal Medicine recommendsusing National Osteoporosis [...] BMD testingevery 15 years Adelita Zuniga DO IMG DXA PROCEDURES Final Resu lt * Hm Colonoscopy (12/11/2018) Colonoscopy completed Anatomical Region Laterality Modality Other Historical Provider HEALTH MAINTENANCE Final Result * Hepatitis C Screening (01/30/2016) Hepatitis C Screening negative us Historical Provider HEALTH MAINTENANCE Final Result from Last 3 Months or Most Recently Relevant to Health Maintenance Insurance [facility] MEDICARE Member Subscriber Plan / Payer (Ef fective 2023-Present) Name:AGUSTIN PLATA Relation to Subscriber:Self Name:Agustin Plata Payer ID:[id number] Group ID:[id number] Type:Not on file Address: [place] [address] [address] [address] [address] Care Teams 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
--- OUTSIDE RECORDS SUMMARY | 2025-04-15 11:24 | XMS_ITS | Patient Health Record ---
Author Organization [facility] [place] Address [address] [facility] [place] [address] Care Team Providers Care Manager Reporting Name Role Phone AcllejasRossym Primary Care Provider Unavailabl e Black, Dannielle Unavailable [phone] Allergies Allergen (clinical drug ingredient) Drug/Non Drug Allergy documented on EMR Reaction Allergy Type Onset Date Status buprenorphine / naloxone Suboxone Unknown Drug Allergy Active codeine Codeine Unknown Drug Allergy Active Latex Latex Unknown Allergy Active Reason For Referral No Information Medications Medication SIG (Take, Route, Frequency, Duration) Notes Start Date End Date Status Vitamin D3 25 MCG (1000 UT) Oral; Duration: 90 Days Active Atorvastatin Calcium 20 MG Oral; Duration: 90 Days Active Levothyroxine Sodium 150 MCG Oral; Duration: 24 Days Active Omeprazole 20 MG Oral; Duration: 90 Days Active Fish Oil 1000 MG Oral; Duration: 90 Days Active Calcium 600 MG 1 tablet with meals Orally Twice a day; Duration: 30 day(s) 07/24/2023 Active Turmeric 07/24/2023 Active Savella 100 MG Oral; Duration: 30 Days Active Social History Tobacco Use: Social History Observation Description Date Details (start date - stop date) Former Smoker NA - NA Tobacco Use/Smoking Question Answer Notes Are you a: former smoker Additional Findings: Tobacco Non-User Current no n-smoker Alcohol Screen Question Answer Notes Did you have a drink containing alcohol in the p ast year? No Points 0 Interpretation Negative Tobacco use other than smoking: Question Answer Notes Are you an other tobacco user? No Plan Of Treatment No Information Insurance Providers Payer Name Payer Address Payer Phone Subscriber Number Group Number Insured Name Patient Relationship to Insured Coverage Start Date Coverage End Date [employer] [employer] Claims [address] [place] [id number] Leslie Del Rosario Self - patient is the insured Medical (General) History Medical History History ICD Code Arthritis Back,Hip,and Knee pain CAD (Cholesterol) Fibromyalgia Gall bladder problems Headaches/Migraines Reflux ( GERD) Rheumatic fever thyroid Joint implants/screws
--- OUTSIDE RECORDS SUMMARY | 2025-04-15 11:24 | XMS_ITS | Clinical Summary ---
Author Organization [facility] Prior to 08/22/[address] [place] [id number] Care Team Providers Care Steeler Name Role Phone Lorena Sanchez DO Primary [...] (NEURONTIN) 300 MG capsule 0 11/16/2020 Active [place]-3 Fatty Acids (Fish Oil) 1000 MG CAPS [...] age to complete this topic Care Teams Steeler Relationship Specialty Start Date End Date Lorena Sanchez DO PCP - General [place] [facility] 08/30/20
--- OUTSIDE RECORDS SUMMARY | 2025-04-15 11:25 | XMS_ITS | Encounter Summary ---
Author Organization [facility] Address [address] [place] [address] Care Team Providers Care Digital Marketing Project Manager Name Role Phone El Callejas MD Primary Care Provider [phone] Encounter Details Date Type Department Care Team (Late st Contact Info) Description 04/05/2025 Results Follow-Up Pediatrics - [facility] [address] [place] [address] lE Callejas MD [address] [place] [address] Social History Tobacco Use Types Packs/Day Years [...] for your loved ones. For example, child development teacher or elderly care for an older [...] Upcoming Encounters Date Type Department Care Team ([facility] st Contact Info) Description 12/20/2025 10:30 AM EDT Office Visit Gastroenterology - [address] [phone] Liliana Cosby PA [address] [address] documented as of this encounter Visit Diagnoses Not on filedocumented in this encounter Additional Health Concerns Assessment Noted Time PHQ-9 Depression Total Score: 0 07/09/19 25 1:21 PM EDT documented as of this encounter Care Teams Digital Marketing Project Manager Relationship Specialty Start Date End Date El Callejas MD [address] [facility] [place] [address] PCP - General Internal Medicine 01/26/21 documented as of this encounter
--- OUTSIDE RECORDS SUMMARY | 2025-04-15 11:25 | XMS_ITS | Encounter Summary ---
Author Organization [facility] Address [address] [place] [address] Care Team Providers Care Service Station Console Operator Name Role Phone El Callejas MD Primary Care Provider [phone] Reason for Referral * Consultation (Routine) - Authorized Specialty Diagnoses / Procedures Referred By Shira howard Referred To Contact Gastroenterology Diagnoses Upper abdominal pain Irritable bowel syndrome, unspecified type Cecil Sheth PA [address] [place] [address] Phone: tel: fax: Gastroenterology - [address] [address] Phone: tel: fax: Referral ID Status Reason Start Date Expiration Date Visits Requested Visits Authorized [id number] Authorized Specialty Services Required 03/26/2025 03/26/2026 1 1 Encounter Details Date Type Department Care Team (Late st Contact Info) Description 03/24/2025 Results [facility] [address] [place] [address] Gloria Mckeon MA Social History Tobacco Use Types Packs/Day Years [...] for your loved ones. 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 I explained she can take it daily until she has a BM but definitely increase her water. I also explained to get prunes/prune juice from the grocery store to see if that helps the process. She agreed. New referral was put in to GI. * Diana Schumacher RN - 03/26/2025 9:22 AM EST See pt's citysocializert message documented in this encounter Plan of Treatment Upcoming Encounters Date Type Department Care Team (Late st Contact Info) Description 12/20/2025 10:30 AM EDT Office Visit Gastroenterology - [address] [phone] Liliana Cosby PA [address] [place] [id number] Scheduled Referrals Name Type Priority Associated Diagnoses Order Schedule Ambulatory referral to Gastroenterology Outpatient Referral Routine Upper abdominal pain Irritable bowel syndrome, unspecified type 1 Occurrences starting 03/26/2025 until 03/26/2026 documented as of this encounter Visit Diagnoses Diagnosis Elevated red blood cell count- Primary Polycythemia, secondary Upper abdominal pain Irritable bowel syndrome, unspecified type documented in this encounter Additional Health Concerns Assessment Noted Time PHQ-9 Depression Total Score: 0 07/09/19 25 1:21 PM EDT documented as of this encounter Care Teams Service Station Console Operator Relationship Specialty Start Date End Date Callejas, El, MD [address] [facility] [place] [address] PCP - General Internal Medicine 01/26/21 documented as of this encounter
--- OUTSIDE RECORDS SUMMARY | 2025-04-15 11:25 | XMS_ITS | Clinical Summary ---
Author Organization [facility] Address [address] [place] [address] Care Team Providers Care Silo Operator Name Role Phone Elly Molina MD Primary [...] of 2) 07/13/2007 COVID-19 Vaccine ( - 2024-2 6 season) 2024 RSV Vaccine 50 years and old er and Patients (1 - 1-dose 75+ series) 2032 Hepatitis B Vaccines Aged Out No long er eligible based on patient's age to complete this topic Care Teams Silo Operator Relationship Specialty Start Date End Date Elly Molina MD PCP - General
== END 2025-02-23 00:01 | disposition home or self-care (01) ==
LOC: HO.HOSX
PROVIDERS: Visit Provider Orthopaedic Surgery
DX: M17.12 Unilateral primary osteoarthritis, left knee (principal)
CPT/HCPCS: 73562; 99212

== ENCOUNTER 2025-02-23 08:44 | Outpatient (AMB) | payer OTHER, SELFPAY ==
--- OUTSIDE RECORDS SUMMARY | 2023-12-31 15:39 | XMS_ITS | Encounter Summary ---
Author Organization [facility] Address [address] [place] [address] Care Team Providers Care Custodian Supervisor Name Role Phone El Callejas MD Primary Care Provider Encounter Details Date Type Department Care Team (Latest Contact Info) Description 12/31/2023 4:39 PM EDT Hospital Encounter TH HISTORIC ENCOUNTERS EASTERN CONVERSION ONLY Lamont Oconnor DO [address] [facility] [address] [place] [address] Spondylolisthesis, lumbosacral region Social History Tobacco Use [...] ed Within the last 3 months, chantell tasi many times did you visit the emergency [...] care for your loved ones. For example, exceptional children teacher or elderly care for an older adult? [...] Care Team (Late st Contact Info) Description 05/31/2025 8:45 AM EDT [facility] [address] [facility] [place] [address] Cecil Sheth PA [address] [place] [address] (work) documented as of this encounter Procedures Procedure Name Priority Date/Time Associated Diagnosis Comments CR SPINE LUMB FLEX AND EXTEN Routine 01/01/2024 7:55 AM EDT Spondylolisthesis, lumbosacral region documented in this encounter Results * CR SPINE LUMB FLEX AND EXTEN (01/01/2024 7:55 AM EDT) Anatomical Region Laterality Modality Radiographic Hellen ging 12/31/2023 4:47 PM EDT Narrative 01/01/2024 7:55 AM EDT [facility] Diagnostic Imaging Department [address] [place] [address] Patient: SHERLYNLESLIE /Age/Sex: 1955 - 68 - F Unit#: [id number] Location/Status: SPDIGEN/REG CLI Mnemonic/Ordering [facility] Ordering Physician: LAMONT OCONNOR DO [...] the L3-4, L4-5, and L5-S1 levels. Code 41508 Dictating Physician: SAGE GARCIA MD Electronically Signed by: SAGE GARCIA MD Dic Date/Time: 01/01/24749 Sign date/Time: 01/01/24 075 Procedure Note Sage Garcia MD - 01/21/2024 [facility] Diagnostic Imaging Department [address] [place] [address] Patient: LESLIE DEL ROSARIO /Age/Sex: 1955 - 68 - F Unit#: [id number] Location/Status: SPDIGEN/REG CLI Mnemonic[facility] Ordering Physician: LAMONT OCONNOR DO [...] 2 anterior spondylolisthesis of L5 relative to [id number] 1.2 cm on the extension and neutral views, and increasing to 1.5 cm with flexion. Spondylolysis of L5 is strongly suspected. There is degenerativedisc disease at the L3-4, L4-5, and L5-S1 levels. Code 75333 Dictating Physician: SAGE GARCIA MD Electronically Signed by: SAGE GARCIA MD Dic Date/Time: 01/01/24 0750 Sign date/Time: 01/01/24 0755 Lamont Oconnor DO IMG XR PROCEDURES Final Result documented in this encounter Visit Diagnoses Diagnosis Spondylolisthesis, lumbosacral region documented in this encounter Care Teams Custodian Supervisor Relationship Specialty Start Date End Date El Callejas MD [address] [place] [address] PCP - General Internal Medicine 01/26/21 documented as of this encounter
--- OUTSIDE RECORDS SUMMARY | 2025-02-23 08:53 | XMS_ITS | Encounter Summary ---
Author Organization [facility] Address [address] [place] [address] Care Team Providers Care Head Of Insight Name Role Phone El Callejas MD Primary Care Provider [phone] Reason for Visit * Reason Onset Date Comments Request For Order(s) 02/15/2025 [facility] Encounter Details Date Type Department Care Team (Late st Contact Info) Description 02/15/2025 Telephone Internal Medicine - [facility] [address] [place] [address] El Callejas MD [address] [place] [address] Social History Tobacco Use Types Packs/Day Years [...] Record ed Within the last 3 months, ho w many times did you visit the emergency [...] care for your loved ones. For example, children's lunchroom supervisor or elderly care for an older adult? [...] on file documented as of this encounter Progress Notes * Ashlyn Myrick - 02/15/2025 12:10 PM EST faxed order from [facility] Placed in nurse's bin documented in this encounter Plan of Treatment Upcoming Encounters Date Type Department Care Team (Late st Contact Info) Description 05/31/2025 8:45 AM EDT Office Visit Internal Medicine - [facility] [address] [place] [address] Cecil Sheth PA [address] [place] [address] documented as of this encounter Visit Diagnoses Not on filedocumented in this encounter Additional Health Concerns Assessment Noted Time PHQ-9 Depression Total Score: 0 07/09/19 25 1:21 PM EDT documented as of this encounter Care Teams Head Of Insight Relationship Specialty Start Date End Date El Callejas MD [address] [place] [address] PCP - General Internal Medicine 01/26/21 documented as of this encounter
--- OUTSIDE RECORDS SUMMARY | 2025-02-23 08:53 | XMS_ITS | Clinical Summary ---
Author Organization [facility] Address [address] [place] [address] Care Team Providers Care Director River Restoration Name Role Phone Elly Molina MD Primary Care Provider Unavailab le Social History Tobacco Use Types Packs/Day Years Used Date Smoking Tobacco: Never Assessed Comments Unknown Sex and Gender Information Value Date Recorded Sex Assigned at Not on file Legal Sex Female 2:26 PM EDT Gender Identity Not on file Sexual Orientation Not on file Plan of Treatment Health Maintenance Due Date Last Done Comments Advance Care Planning 1955 Hepatitis C Virus Screening 1955 DTaP/Tdap/Td Vaccines (1 - Tdap) 1976 Pneumococcal Vaccines 50+ (1 of 1 - PCV) 07/13/2007 Zoster (Shingles) Vaccine (1 of 2) 07/13/2007 COVID-19 Vaccine ( - 2023-2 5 season) 2024 RSV Vaccine 50 years and old er and Patients (1 - 1-dose 75+ series) 2032 Hepatitis B Vaccines Aged Out No long er eligible based on patient's age to complete this topic Care Teams Director River Restoration Relationship Specialty Start Date End Date Elly Molina MD PCP - General
--- OUTSIDE RECORDS SUMMARY | 2025-02-23 08:53 | XMS_ITS | Encounter Summary ---
Author Organization [facility] Address [address] [place] [address] Care Team Providers Care Digital Media Representative Name Role Phone El Callejas MD Primary Care Provider [phone] Reason for Visit * Reason Onset Date Comments Request For Order(s) 01/19/2025 [facility] Encounter Details Date Type Department Care Team (Late st Contact Info) Description 01/19/2025 Telephone Internal Medicine - [facility] [address] [place] [address] El Callejas MD [address] [place] [address] Social History Tobacco Use Types Packs/Day Years [...] for your loved ones. For example, child care director or elderly care for an older adult? [...] encounter Progress Notes * Ashlyn Myrick - 01/19/2025 10:54 AM EDT faxed order from [facility] Placed in nurse's bin documented in this encounter Plan of Treatment Upcoming Encounters Date Type Department Care Team (Late st Contact Info) Description 05/31/2025 8:45 AM EDT Office Visit [facility] Medicine - [facility] [address] [facility] [place] [address] Cecil Sheth PA [address] [place] [address] documented as of this encounter Visit Diagnoses Not on filedocumented in this encounter Additional Health Concerns Assessment Noted Time PHQ-9 Depression Total Score: 0 07/09/19 25 1:21 PM EDT documented as of this encounter Care Teams Digital Media Representative Relationship Specialty Start Date End Date El Callejas MD [address] [place], [place] [address] [place] [address] PCP - General Internal Medicine 01/26/21 documented as of this encounter
--- OUTSIDE RECORDS SUMMARY | 2025-02-23 08:53 | XMS_ITS ---
Author Name [facility] Organization Unknown Encounters Encounter Type Encounter Reason Primary Diagnosis Location Date Ambulatory [facility] 11/05/2022 Ambulatory [facility] 10/18/2022
--- OUTSIDE RECORDS SUMMARY | 2025-02-23 08:53 | XMS_ITS | Clinical Summary ---
Author Organization [facility] Address [address] [place], [place] [id number] Care Team Providers Care Tear Down Matcher Name Role Phone Lorena Sanchez DO Primary Care P rovider Allergies Active Allergy Reactions Criticality Noted Date Comments Codeine Other (See Comments) ,Nausea And Vomiting 06/02/2014 Latex Other (See Comments) 07/20/2014 Other Rash Low 06/02/2014 Seasonal 09/05/2018 Medications Medication Sig Dispensed Refills Start Date End Date Status albuterol 108 (90 Base) MCG/ACT inhaler Take 2 puffs by mouth. 0 06/20/2020 Active aspirin 81 MG EC tablet Take 81 mg by mouth. 0 Active atorvastatin (LIPITOR) tablet 20 mg Take 20 mg by mouth every night at bedtime. 0 10/27/2020 Active azelastine (ASTELIN) 0.1 % nasal spray USE 2 SPRAYS IN EACH NOSTRIL TWICE DAILY DIRECTED 0 10/27/2020 Active fluticasone (FLONASE) 50 MCG/ACT nasal spray SHAKE LIQUID AND USE 2 SPRAYS IN EACH NOSTRIL EVERY DAY NEEDED FOR ALLERGY SYMPTOMS 0 01/01/2020 Active levothyroxine (SYNTHROID) tablet 150 mcg Take 1 tablet by mouth daily. 0 04/22/2014 Active meclizine (ANTIVERT) 12.5 MG tablet Take 12.5 mg by mouth. 0 05/07/2017 Active omeprazole (PriLOSEC) 20 MG capsule Take 1 capsule by mouth daily. 0 10/28/2020 Active pravastatin (PRAVACHOL) tablet 40 mg 0 04/22/2014 Active Acetaminophen Extra Strength 500 MG tablet 0 11/16/2020 Active celecoxib (CeleBREX) 200 MG capsule 0 11/16/2020 Active gabapentin (NEURONTIN) 300 MG capsule 0 11/16/2020 Active [place]-3 Fatty Acids (Fish Oil) 1000 MG CAPS Take 1 capsule by mouth. 0 11/07/2020 Active amoxicillin (AMOXIL) 500 MG tablet Take 4 tabs 1 hour prior to dental appointment 20 tablet 3 11/29/2020 Active vitamin D3 (VITAMIN D3) 25 MCG (1000 UT) tablet Take 2,000 Units by mouth daily. 0 12/12/2020 Active Savella 100 MG TABS tablet Take 100 mg by mouth 2 (two) times a day. 0 12/30/2020 Active methocarbamol (Robaxin-750) 750 MG tablet Take 1 tab every 8 hours as needed for spasms 60 tablet 2 01/13/2021 Active HYDROmorphone (Dilaudid) 2 MG tablet Take 1 tabs every 8-12 hours as needed for pain 30 tablet 0 02/07/2021 Active milnacipran (Savella) 100 MG TABS tablet Take 1 tablet by mouth 2 (two) times a day. 0 05/08/2021 Active Linzess 145 MCG CAPS Take 145 mcg by mouth every morning before breakfast. 0 12/12/2021 Active Trulance 3 MG TABS TAKE 3MG BY MOUTH DAILY FOR 30 DAYS 0 10/26/2021 Active Social History Tobacco Use Types Packs/Day Years Used Date Smoking Tobacco: Never Assessed Sex and Gender Information Value Date Recorded Sex Assigned at Not on file Gender Identity Not on file Sexual Orientation Not on file Job Start Date Occupation Industry Not on file Not on file Not on file Last Filed Vital Signs Vital Sign Reading Time Taken Comments Blood Pressure - - Pulse - - Temperature - - Respiratory Rate - - Oxygen Saturation - - Inhaled Oxygen Concentration - - Weight 90.7 kg (200 lb) 11/29/2020 1:54 PM EDT Height 160 cm (5' 3 ) 11/29/2020 1:54 PM EDT Body Mass Index 35.43 11/29/2020 1:54 PM EDT Plan of Treatment Health Maintenance Due Date Last Done Comments Hepatitis C Screening 1955 Depression Screening 1969 BMI Counseling 07/13/1975 Preventative Health Evaluation 07/13/1975 Colon Cancer Screening (Colonoscopy) 2002 Breast Cancer Screening (Mammogram) 07/13/2007 Fall Risk Assessment 2022 Osteoporosis Screening (DEXA Scan) 2022 Pneumococcal Vaccine (1 of 1 - PCV) 2022 COVID-19 Vaccine (4 - 2024-2 6 season) 2024 01/22/2021, 07/09/2020, 06/17/2020 Influenza Vaccine (#1) 2024 8, 12/05/2014 DTap / Tdap / Td (3 - Td or Tdap) 12/20/2027 12/19/2017, 02/26/2014 RSV Adult > 60+ Yrs or (1 - 1-dose 75+ series) 2032 Shingrix-Zoster Vaccine Completed 02/03/20 18, 11/27/2017 Hepatitis B Vaccines Aged Out No long er eligible based on patient's age to complete this topic RSV Ped < 20 months Aged Out No longe r eligible based on patient's age to complete this topic Care Teams Tear Down Matcher Relationship Specialty Start Date End Date Lorena Sanchez DO PCP - General Retirement Actuary 08/30/20
--- OUTSIDE RECORDS SUMMARY | 2025-02-23 08:53 | XMS_ITS | Encounter Summary ---
Author Organization [facility] Address [address] [place] [address] Care Team Providers Care Cleaner Wall Name Role Phone El Callejas MD Primary Care Provider [phone] Reason for Visit * Reason Onset Date Comments special procedure 12/04/2024 Encounter Details Date Type Department Care Team ([facility] Contact Info) Description 12/04/2024 Telephone Gastroenterology - [place] [facility] [address] [facility] [address] [place] [id number] Evelyn Nair MD [address] [facility] [address] [place] [address] Social History Tobacco Use Types Packs/Day Years [...] ed Within the last 3 months, chantell w many times did you visit the [...] do you feel lonely or isolated from ose around you? Rarely 07/08/2024 Food Risk [...] for your loved ones. For example, child nurse or elderly care for an older adult? [...] as of this encounter Progress Notes * Tg Johnson - 02/19/2025 11:55 AM EST CANCELLED. * Taryn Cervantes - 02/19/2025 11:46 AM EST Pt is calling to cancel her procedure due to having so many things going on. * Tg Johnson - 01/01/2025 2:39 PM EDT RESCHEDULED. * Taryn Cervantes - 01/01/2025 2:16 PM EDT Pt is calling to r/s her procedure due to something coming up. * Maria R Mcginnis MA - 12/04/2024 1:40 PM EDT RESCHEDULED * Lindsey Hayward - 12/04/2024 12:39 PM EDT Patient called to reschedule colonoscopy on 12/[address] Nair. Patient stated she is currently undergoing physical therapy due to back injury documented in this encounter Plan of Treatment Upcoming Encounters Date Type Department Care Team (Late st Contact Info) Description 05/31/2025 8:45 AM EDT Office Visit Internal Medicine - [facility] [address] [place] [address] Cecil Sheth PA [address] [place] [address] documented as of this encounter Visit Diagnoses Not on filedocumented in this encounter Additional Health Concerns Assessment Noted Time PHQ-9 Depression Total Score: 0 07/09/19 25 1:21 PM EDT documented as of this encounter Care Teams Cleaner Wall Relationship Specialty Start Date End Date El Callejas MD [address] [facility] [place] [address] PCP - General Internal Medicine 01/26/21 documented as of this encounter
--- OUTSIDE RECORDS SUMMARY | 2025-02-23 08:53 | XMS_ITS | Clinical Summary ---
Author Organization [facility] [address] [place] [address] [address] [place] [address] Phone Care Team Providers Care Medication Tech Name Role Phone El Callejas MD Primary Care Provider [phone] Allergies Active Allergy Reactions Criticality Noted Date Comments Buprenorphine-Nalox one Dizziness,Hallucinat ions High 09/19/2022 Patient ended up in the hospital with dizziness, confusion hallucination and required Narcan Codeine GI intolerance,Nausea And Vomiting,Unknown 06/02/2014 Latex, Natural Rubber Unknown,Rash Low 06/02/2014 Levonorgestrel-Ethi nyl Estrad 09/05/2018 Pollen Extracts 09/05/2018 Medications meclizine (ANTIVERT) 12.5 mg tablet Take 1 tablet (12.5 mg total) by mouth. 05/07/19 18 Active methocarbamoL (ROBAXIN) 500 mg tablet Take 1 tablet (500 mg total) by mouth. 10/27/19 22 Active omega-3 acid ethyl esters (LOVAZA) 1 gram capsule Take 1 capsule (1 g total) by mouth 1 (one) time each day. 12/20/19 23 Active sodium chloride (Fede 128) 2 % ophthalmic solution USE ONE DROP INTO BOTH EYES TID 10/15/19 19 Active sodium chloride 5 % ophthalmic ointment APPLY INTO BOTH EYES QHS 10/10/19 19 Active turmeric/turme yaniv ext/pepr ext (turmeric-turm ranjith ext-pepper) 500-3 mg capsule Take 1,000 mg by mouth. 05/08/19 22 Active calcium carbonate 1,500 mg (600 mg elemental calcium) tablet Take 2 tablets (3,000 mg total) by mouth 1 (one) time each day. Active milnacipran (Savella) 100 mg tablet Take 1 tablet (100 mg total) by mouth 2 (two) times a day. 180 tablet 1 07/10/19 25 Active levothyroxine (SYNTHROID, LEVOTHROID) 150 mcg tablet TAKE 1 TABLET(150 MCG) BY MOUTH 1 TIME EACH DAY 90 tablet 1 10/14/19 25 Active atorvastatin (LIPITOR) 20 mg tablet TAKE 1 TABLET BY MOUTH DAILY 90 tablet 1 11/26/19 25 Active fezolinetant 45 mg tabletIndicati ons:Menopausal hot flushes Take 1 tablet by mouth 1 (one) time each day. 30 tablet 5 12/02/19 25 026 Active Ventolin HFA 90 mcg/actuation inhaler INHALE 2 PUFFS BY MOUTH EVERY 4 HOURS NEEDED FOR COUGH OR WHEEZING OR SHORTNESS OF BREATH 18 g 1 12/18/19 25 Active cholecalcifero l (VITAMIN D-3) 25 mcg (1,000 unit) tablet TAKE 2 TABLETS BY MOUTH DAILY 180 tablet 1 01/23/20 25 Active pantoprazole (PROTONIX) 40 mg EC tablet TAKE 1 TABLET BY MOUTH DAILY 90 tablet 1 02/04/20 25 Active cyanocobalamin (VITAMIN B-12) 1,000 mcg tablet TAKE 1 TABLET BY MOUTH 1 TIME EACH DAY 90 tablet 1 02/12/20 25 Active Linzess 290 mcg capsule TAKE 1 CAPSULE(290 MCG) BY MOUTH 1 TIME EACH DAY 30 capsule 5 02/17/20 25 Active pantoprazole (PROTONIX) 40 mg EC tablet TAKE 1 TABLET BY MOUTH DAILY 90 tablet 1 10/30/19 25 025 Discontinued linaCLOtide (Linzess) 290 mcg capsule Take 1 capsule (290 mcg total) by mouth 1 (one) time each day. 30 capsule 3 11/19/19 25 025 Discontinued cyanocobalamin (VITAMIN B-12) 1,000 mcg tablet Take 1 tablet (1,000 mcg total) by mouth 1 (one) time each day. 90 each 09/10 025 Discontinued Active Problems Problem Noted Date Diagnosed Date Aortic stenosis 10/07/2024 Overview (10/07/2024): Echo recommended 08/18 Hiatal hernia 11/28/2023 Chronic back pain 11/28/2023 Overview (10/07/2024): Posterior laminectomy decompression and fusion 08/16 Dr. Sanchez Allergic rhinitis 11/28/2023 History of depression 11/28/2023 Chronic sinusitis 05/28/2023 COVID 06/23/2021 Osteoarthritis, knee 11/15/2020 Overview (05/28/2023): Right TKR 11/14/20 Prediabetes 11/07/2020 Varicose veins of both lower extremities with pa in 02/02/2019 IBS (irritable bowel syndrome) 10/16/2018 Overview (05/28/2023): Alt C/D Chronic headache disorder 10/16/2018 Overview (05/28/2023): Severe migraines, onset as teenager. 10/16/2018---frequency=20 days per month. RLS (restless legs syndrome) 05/30/2018 Fibromyalgia 05/31/2015 Obstructive sleep apnea 02/14/2015 Hypothyroidism 07/20/2014 Hyperlipidemia 07/20/2014 GERD (gastroesophageal reflux disease) 5 Overview (05/28/2023): 4 cm repaired surgically 09/04/2017. Encounters Date Type Department Care Team Description 02/15/2025 Telephone Internal Medicine - [facility] [address] [place] [phone] El Callejas MD 02/08/2025 Telephone Obstetrics and Gynecology - [facility] [address] [place] [phone] Adelita Zuniga DO 01/19/2025 Telephone Internal Medicine - [address] [phone] El Callejas MD 12/04/2024 Telephone Gastroenterology - [place] [address] [place] [address] Evelyn Nair MD 12/01/2024 10:00 AM EDT Office Visit Internal Medicine - [address] [phone] Cecil Sheth PA Chronic intractable headache, unspecified headache type (Primary Dx); Mixed hyperlipidemia; Vertigo; Chronic low back pain, unspecified back pain laterality, unspecified whether sciatica present; Gastroesophageal reflux disease, unspecified whether esophagitis present; Hypothyroidism, unspecified type 12/01/2024 9:00 AM EDT Office Visit Obstetrics and Gynecology - [address] [phone] Jes Valiente CNM Menopausal hot flushes (Primary Dx); Elevated blood pressure reading from Last 3 Months Immunizations Immunization Administration Dates Next Due Influenza Quadravalent, 0.5m l (Fluzone High-dose) 65yo and older 12/26/2021,01/12/2021,11/22/2018,2017,12/20/2016,12/24/2015 Influenza trivalent, 0.5mL ( Fluzone High-dose) 65yo and older 12/10/2022 Influenza trivalent, 0.5mL, preservative free (Fluarix; FluLaval; Fluzone) ages 6mo and older (Afluria) 3 years and older 11/10/2019,12/16/2017,12/20/2016,2015 Influenza trivalent, with preservative (Fluzone; Afluria) 6mo and older 02/02/2018,12/05/2014 Influenza, Unspecified 11/28/2023 Pfizer SARS-CoV-2 COVID-19, mRNA, LNP-S, preservative free 12/09/2021,01/22/2021,07/09/2020,2020 Pneumococcal conjugate 20 va lent (Prevnar 20, PCV 20) 2mo and older 12/10/2022 Tdap Tetanus diptheria acell ular pertussis (Boostrix; Adacel) 7yo and older 12/19/2017,02/26/2014 Zoster recombinant (Shingrix ) 19yo and older 02/02/2018,11/27/2017 Surgical History Surgery Date Site/Laterality Comments JOINT REPLACEMENT PROCEDURE:JOINT REPLACEMENT APPENDECTOMY 1974 PROCEDURE: HISTORICAL APPENDECTOMY TONSILLECTOMY 1967 PROCEDURE: HISTORICAL TONSILLECTOMY SECTION 1981 PROCEDURE: HISTORICAL ; COMMENT: x2 COLONOSCOPY 2008 PROCEDURE: HISTORICAL COLONOSCOPY; COMMENT: normal q10 year repeat UPPER GASTROINTESTINAL ENDOSCOPY 09/24/2016 PROCEDURE: CA UPPER GI ENDOSCOPY PERFORMED; COMMENT: Performed on treatment with omeprazole; minimal antral gastritis; 4 cm hiatal hernia; CLOtest: OTHER SURGICAL HISTORY 08/2017 PROCEDURE: REPAIR PARAESOPHAGEAL HERNIA CHOLECYSTECTOMY 08/2017 PROCEDURE: HISTORICAL CHOLECYSTECTOMY; COMMENT: lap drake and repair HH. COLONOSCOPY 12/11/2018 PROCEDURE: HISTORICAL COLONOSCOPY; COMMENT: no polyps TOTAL KNEE ARTHROPLASTY 11/14/2020 Right PROCEDURE: CA ARTHRP KNE CONDYLE&PLATU MEDIAL&LAT COMPARTMENTS TOTAL KNEE ARTHROPLASTY Right PROCEDURE: HISTORICAL TOTAL KNEE REPLACE APPENDECTOMY PROCEDURE: CA APPENDECTOMY OTHER SURGICAL HISTORY Posterior laminectomy decompression and fusion BACK SURGERY 07/23/2024 - 08/22/2024 Medical History Medical History Date Comments GERD (gastroesophageal reflu x disease) DX:GERD (gastroesophageal re flux disease) Hyperlipidemia 07/20/2014 DX:Hyperlipidemi a GERD (gastroesophageal reflu x disease) 07/20/2014 DX:GERD (gastroesophageal re flux disease) Hypothyroidism 07/20/2014 DX:Hypothyroidis m Allergic rhinitis 07/20/2014 DX:Allergic rh initis Chronic back pain DX:Chronic tami k pain Chronic sinusitis DX:Chronic sin usitis Osteoporosis 09/08/2014 DX:Osteoporosis Fibromyalgia 05/31/2015 DX:Fibromyalgia Renal cyst DX:Renal cyst History of cholecystectomy 09/04/2017 DX:Hi story of cholecystectomy Elevated hematocrit DX:Elevated hematocrit Chronic headache disorder 10/16/2018 DX:Chr onic headache disorder; COMMENT: Severe migraines, onset as teenager. IBS (irritable bowel syndrome) 10/16/2018 D X:IBS (irritable bowel syndrome); COMMENT: Alt C/D Prediabetes 11/07/2020 DX:Prediabetes Family History Medical History Relation Name Comments Colon cancer Brother 1 Mitch Coronary artery disease Brother 2 joshua ? Breast cancer Daughter double mastect karyna, reconstruction Arthritis Father Arthritis Mother Other: Other Mother multiple issues lots of pain, unsure exactly of what problems Ovarian cancer Neg Hx Uterine cancer Neg Hx Relation Name Status Comments Brother 1 Mitch (Age 62) Brother 2 joshua Daughter Alive Father Alive Mother (Age 76) Son Alive Social History Tobacco Use Types Packs/Day Years Used Date Smoking Tobacco: Former Cigarettes 0.5 9 0 1973 - 1982 Smokeless Tobacco: Never Tobacco Cessation:Counseling Given: Not Answered Alcohol Use Standard Drinks/Week Comments No 0 [...] for your loved ones. For example, children's institution attendant or elderly care for an older adult? [...] on file Sexual Orientation Not on file Obstetrics History Para Term AB IAB SAB Ectopic Multiple Livin g Live Births 2 2 2 2 2 Date Outcome GA Total Labor Labor/2nd/3rd Weight Sex Type Anes PTL Ashley A1 A5 Name Clin 979 Term F CS-Un spec Livin g Vil[place] Delivery Location:[place] Comments:uncompl 982 Term M CS-Un spec Livin g [place] Delivery Location:[place] Comments:uncompl Last Filed Vital Signs Vital Sign Reading Time Taken Comments Blood Pressure 130/70 12/01/2024 10:14 AM EDT Pulse 78 12/01/2024 9:58 AM EDT Temperature 36.7 C (98.1 F) 09/03/2024 12:15 AM EDT Respiratory Rate 16 12/01/2024 9:58 AM EDT Oxygen Saturation 97% 09/03/2024 1:00 AM EDT Inhaled Oxygen Concentration - - Weight 95.3 kg (210 lb) 12/01/2024 9:58 AM EDT Height 160 cm (5' 3 ) 09/02/2024 8:04 PM EDT Body Mass Index 37.2 09/02/2024 8:04 PM EDT Plan of Treatment Upcoming Encounters Date Type Department Care Team (Late st Contact Info) Description 05/31/2025 8:45 AM EDT [facility] [address] [place] [phone] Cecil Sheth PA [address] [place] [address] Health Maintenance Due Date Last Done Comments Medicare Annual Wellness Visit 03/02/2022 Colorectal Cancer Screening: Colonoscopy 12/12/2023 12/11/2018, 12/11/2018 COVID-19 Vaccine ( season) 2024 12/09/2021, 01/22/2021, 07/09/2020, Additional history exists Influenza Vaccine (#1) 2024 , 12/10/2022, 12/26/2021, Additional history exists Breast Cancer Screening 06/05/2025 06/06/19 24, 11/06/2022, 05/02/2022, Additional history exists Social Influencers of Health Screening 07/08/2025 07/08/2024 Falls Risk Assessment 10/07/2025 10/07/2024, 024 DTaP,Tdap,and Td Vaccines (3 - Td or Tdap) 12/20/2027 12/19/2017, 02/26/2014 Cholesterol Screening (Lipid Panel) 07/15/2029 07/15/2024, 07/04/2023, 07/04/2023 RSV Immunization Adult Patients (1 - 1-dose 75+ series) 2032 Osteoporosis Screening (Bone Density Screening) 10/18/2032 10/18/2022, 12/05/2017 Hepatitis C Screening Completed 01/30/2016 Zoster Vaccines Completed 02/02/2018, 11/27/2017 Pneumococcal Vaccine: 50+ Years Completed 12/10/2022 Depression Screening Completed 10/06/2024 HIB Vaccines Aged Out No longer eligi ble based on patient's age to complete this topic HPV Vaccines Aged Out No longer eligi ble based on patient's age to complete this topic Hepatitis A Vaccines Aged Out No long er eligible based on patient's age to complete this topic Hepatitis B Vaccines Aged Out No long er eligible based on patient's age to complete this topic IPV Vaccines Aged Out No longer eligi ble based on patient's age to complete this topic MMR Vaccines Aged Out No longer eligi ble based on patient's age to complete this topic Meningococcal ACWY Vaccine Aged Out N o longer eligible based on patient's age to complete this topic Meningococcal B Vaccine Aged Out No l onger eligible based on patient's age to complete this topic RSV Immunization Patients Under 20 months Aged Out No longer eligible based on patient's age to complete this topic Varicella Vaccines Aged Out No longer eligible based on patient's age to complete this topic Procedures Procedure Name Priority Date/Time Associated Diagnosis Comments COMPREHENSIVE METABOLIC PANEL Routine 12/01/2024 10:23 AM EDT Chronic intractable headache, unspecified headache type MAGNESIUM Routine 12/01/2024 10:23 AM EDT Chronic intractable headache, unspecified headache type VITAMIN B12 AND FOLATE Routine 12/01/2024 10:23 AM EDT Chronic intractable headache, unspecified headache type HEMOGLOBIN A1C Routine 12/01/2024 10:23 AM EDT Mixed hyperlipidemia LIPID PANEL WITH REFLEX TO DIRECT LDL Routine 07/15/2024 9:13 AM EDT Mixed hyperlipidemia DIAGNOSTIC MAMMOGRAPHY INCLUDING CAD BILATERAL Routine 06/06/2023 1:39 PM EDT Other abnormal and inconclusive findings on diagnostic imaging of breast DXA BONE DENSITY STUDY 1+ SITS AXIAL SKEL Routine 10/18/2022 4:04 PM EDT Encounter for gynecological examination (general) (routine) without abnormal findings COLONOSCOPY Routine 12/11/2018 HEPATITIS C SCREENING Routine 01/30/2016 from Last 3 Months or Most Recently Relevant to Health Maintenance Results * (ABNORMAL) Vitamin B12 and folate (12/01/2024 10:23 AM EDT) [facility] Vitamin B-12 233(L) 250 - 900 pcg/mL LAB CHEMISTRY METHOD 12/01/2024 4:26 PM EDT [facility] Folate 16.7 2.8 - 17.0 ng/ml LAB CHEMISTRY METHOD 12/01/2024 4:26 PM EDT [facility] Blood Venous blood specimen / Unknown Venipuncture / Unknown 12/01/2024 10:23 AM EDT 12/01/2024 10:23 AM EDT Cecil PATEL LAB BLOOD ORDERABLES Fi nal Result Performing Organization Address City/[facility]/ZIP Co de Phone Number [facility] [address] [place] [address], [place] [phone] * Magnesium (12/01/2024 10:23 AM EDT) [facility] Magnesium 2.3 1.9 - 2.6 mg/dL LAB CHEMISTRY METHOD 12/01/2024 3:56 PM EDT [facility] Blood Venous blood specimen / Unknown Venipuncture / Unknown 12/01/2024 10:23 AM EDT 12/01/2024 10:23 AM EDT Cecil PATEL LAB BLOOD ORDERABLES Fi nal Result [facility] [address] [place] [address], [place] [phone] * Hemoglobin A1c (12/01/2024 10:23 AM EDT) [facility] Hemoglobin A1C 6.2 <6.5 % LAB CHEMISTRY METHOD 12/01/2024 1:07 PM EDT [facility] Mean Bld Glu Estim. 131 mg/dL LAB CHEMISTRY METHOD 12/01/2024 1:07 PM EDT [facility] Blood Venous blood specimen / Unknown Venipuncture / Unknown 12/01/2024 10:23 AM EDT 12/01/2024 10:23 AM EDT Cecil PATEL LAB BLOOD ORDERABLES Fi nal Result [facility] [address] [place] [address], * Comprehensive metabolic panel (12/01/2024 10:23 AM EDT) Pathologist [facility] Sodium 139 133 - 145 mmol/L LAB CHEMISTRY METHOD 12/01/2024 4:28 PM [facility] Potassium 4.3 3.5 - 5.5 mmol/L LAB CHEMISTRY METHOD 12/01/2024 4:28 PM [facility] Chloride 103 96 - 110 mmol/L LAB CHEMISTRY METHOD 12/01/2024 4:28 PM [facility] CO2 27 21 - 32 mmol/L LAB CHEMISTRY METHOD 12/01/2024 4:28 PM [facility] Anion Gap 9 3 - 11 LAB CHEMISTRY METHOD 12/01/2024 4:28 PM [facility] Glucose 97 70 - 100 mg/dL LAB CHEMISTRY METHOD 12/01/2024 4:28 PM [facility] BUN 18 5 - 25 mg/dL LAB CHEMISTRY METHOD 12/01/2024 4:28 PM [facility] Creatinine 0.66 0.50 - 1.10 mg/dL LAB CHEMISTRY METHOD 12/01/2024 4:28 PM [facility] eGFR 96 >=60 mL/min/1. 73m2 LAB CHEMISTRY METHOD 12/01/2024 4:28 PM [facility] Comment:Calculation based on the Chronic Kidney Disease Epidemiology Collaboration (CKD-EPI) equation refit without adjustment for race. BUN/Creatinine Ratio 27.3 LAB CHEMISTRY METHOD 12/01/2024 4:28 PM EDT [facility] Calcium 10.3 8.5 - 10.5 mg/dL LAB CHEMISTRY METHOD 12/01/2024 4:28 PM [facility] AST (SGOT) 20 10 - 42 unit/L LAB CHEMISTRY METHOD 12/01/2024 4:28 PM [facility] ALT (SGPT) 18 10 - 60 unit/L LAB CHEMISTRY METHOD 12/01/2024 4:28 PM [facility] Alkaline Phosphatase 104 42 - 121 unit/L LAB CHEMISTRY METHOD 12/01/2024 4:28 PM [facility] Total Protein 7.1 6.0 - 8.0 g/dL LAB CHEMISTRY METHOD 12/01/2024 4:28 PM [facility] Albumin 4.3 3.2 - 5.0 g/dL LAB CHEMISTRY METHOD 12/01/2024 4:28 PM [facility] Total Bilirubin 0.4 0.0 - 1.4 mg/dL LAB CHEMISTRY METHOD 12/01/2024 4:28 PM [facility] Blood Venous blood specimen / Unknown Venipuncture / Unknown 12/01/2024 10:23 AM EDT 12/01/2024 10:23 AM EDT Cecil PATEL LAB BLOOD ORDERABLES Fi nal Result [facility] [address] [place] [address], * (ABNORMAL) Lipid panel with reflex to direct LDL (07/15/2024 9:13 AM EDT) Cholesterol 149 0 - 200 mg/dL LAB CHEMISTRY METHOD 07/15/2024 1:16 PM [facility] Triglycerides 174(H) 0 - 150 mg/dL LAB CHEMISTRY METHOD 07/15/2024 1:16 PM EDT [facility] HDL 52 >=40 mg/dL LAB CHEMISTRY METHOD 07/15/2024 1:16 PM EDT [facility] LDL Calculated 62 0 - 100 mg/dL LAB CHEMISTRY METHOD 07/15/2024 1:16 PM EDT [facility] VLDL Cholesterol José Luis 34.8 mg/dL LAB CHEMISTRY METHOD 07/15/2024 1:16 PM EDT [facility] Non HDL Chol. (LDL+VLDL) 97 <145 mg/dL LAB CHEMISTRY METHOD 07/15/2024 1:16 PM EDT [facility] Chol/HDL Ratio 2.9 0.0 - 4.4 LAB CHEMISTRY METHOD 07/15/2024 1:16 PM EDT [facility] Blood Venous blood specimen / Unknown Venipuncture / Unknown 07/15/2024 9:13 AM EDT 07/15/2024 9:13 AM EDT us Cecil PATEL LAB BLOOD ORDERABLES Fi nal Result [facility] [address] [place] [address], * DIAGNOSTIC MAMMOGRAPHY INCLUDING CAD BILATERAL (06/06/2023 1:39 PM EDT) Anatomical Region Laterality Modality Mammography 11/06/2022 1:50 PM EDT Narrative 06/06/2023 2:04 PM EDT This is a summary report. The complete report is available in the patient's medical record. If you cannot access the medical record, please contact the sending organization for a detailed fax or copy. BILATERAL 3D DIGITAL DIAGNOSTIC MAMMOGRAM History: Follow-up for upper outer calcifications Comparison: Multiple priors dating back to 08/30/2014 Technique: Bilateral full-field digital 3D mammography was performed using standard CC and MLO projections, left breast ML and CC magnification views CAD was used to evaluate this mammogram. Findings: Density: The breasts are almost entirely fatty-A RIGHT: No suspicious masses, groups of microcalcification or areas of architectural distortion identified. Stable typically benign parenchymal asymmetries LEFT: Morphologically stable probably benign upper outer calcifications. No new suspicious findings IMPRESSION: : 1. Right: No mammographic evidence of malignancy. 2. Left: Morphologically stable probably benign upper outer calcifications BI-RADS Category 3 probably benign Recommendation: Left breast CC and ML magnification views in 1 year Procedure Note Segun Person MD - 11/11/2023 This is a summary report. The complete report is available in thepatient's medical record. If you cannot access the medical record, pleasecontact the sending organization for a detailed fax or copy. BILATERAL 3D DIGITAL DIAGNOSTIC MAMMOGRAM History: Follow-up for upper outer calcifications Comparison: Multiple priors dating back to 08/30/2014 Technique: Bilateral full-field digital 3D mammography was performed usingstandard CC and MLO projections, left breast ML and CC magnificationviews CAD was used to evaluate this mammogram. Findings: Density: The breasts are almost entirely fatty-A RIGHT: No suspicious masses, groups of microcalcification or areas ofarchitectural distortion identified. Stable typically benign parenchymalasymmetries LEFT: Morphologically stable probably benign upper outer calcifications. No newsuspicious findings IMPRESSION: : 1. Right: No mammographic evidence of malignancy. 2. Left: Morphologically stable probably benign upper outercalcifications BI-RADS Category 3 probably benign Recommendation: Left breast CC and ML magnification views in 1 year El Callejas MD IMG BI PROCEDURES Final Result * DXA BONE DENSITY STUDY 1+ SITS AXIAL SKEL (10/18/2022 4:04 PM EDT) Anatomical Region Laterality Modality Bone Densitometr y 07/27/2022 8:56 AM EDT Narrative 10/18/2022 4:35 PM EDT BONE DENSITY SCAN (DEXA): FINDINGS: Lumbar Spine T-score is -2.1. (SD relative to 20-29 y/o adult) Z-score is -0.3. (SD relative to age matched peers) This is considered osteopenia by WHO criteria. Left Hip T-score is -1.3. Z-score is 0.3. This is considered osteopenia by WHO criteria. Comparison exam(s): 12/05/2017. 15.8% loss of left hip bone mineral density and 13.2% loss of lumbar spine bone mineral density, both statistically significant at the 95% confidence level. IMPRESSION: IMPRESSION: Osteopenia by WHO criteria. This patient has a 12% risk of major osteoporotic fracture and a 1.2% risk of hip fracture over the next 10 years. (World Health Organization Fracture Risk Assessment) [facility] Department of Internal Medicine recommends using National Osteoporosis Foundation (NOF) guidelines in treatment decisions related to osteoporosis. NOF guidelines suggest considering treatment for postmenopausal women and men aged 50 or older presenting with the following: History of hip or vertebral fracture. T-score = -2.5 (DXA) at the femoral neck, total hip, or spine, after appropriate evaluation to exclude secondary causes. Low bone mass (T-score between -1.0 and -2.5 at the femoral neck or spine) AND a 10-year probability of a hip fracture = 3% OR a 10-year probability of a major osteoporosis-related fracture = 20% based on the [place]-adapted WHO algorithm Please note that all treatment decisions require clinical judgment and consideration of individual patient factors, including patient preferences, co-morbidities, previous drug use, risk factors not captured in the FRAX model (e.g., frailty, falls, vitamin D deficiency, increased bone turnover, interval significant decline in bone density) and possible under- or over-estimation of fracture risk by FRAX. Optional alternative screening schedule based on laverne Brooks., [facility] April 12, 2011 for patients with osteopenia (based on hip BMD T-score) is as follows: * advanced osteopenia (T scores -2.00 to -2.49), BMD testing every year * moderate osteopenia (T scores -1.50 to -1.99), BMD testing every 5 years mild osteopenia or normal BMD (T scores -1.50 and higher), BMD testing every 15 years Procedure Note Elba Marcelo MD - 04/30/2023 BONE DENSITY SCAN (DEXA): FINDINGS: Lumbar Spine T-score is -2.1. (SD relative to 20-29 y/o adult) Z-score is -0.3. (SD relative to age matched peers) This is considered osteopenia by WHO criteria. Left Hip T-score is -1.3. Z-score is 0.3. This is considered osteopenia by WHO criteria. Comparison exam(s): 12/05/2017. 15.8% loss of left hip bone mineraldensity and 13.2% loss of lumbar spine bone mineral density, both statistically significant at the95% confidence level. IMPRESSION: IMPRESSION: Osteopenia by WHO criteria. This patient has a 12% risk of majorosteoporotic fracture and a 1.2% risk of hip fracture over the next 10 years. (World HealthOrganization Fracture Risk Assessment) [facility] Department of Internal Medicine recommendsusing National Osteoporosis Foundation (NOF) guidelines in treatment decisions related toosteoporosis. NOF guidelines suggest considering treatment for postmenopausal women and menaged 50 or older presenting with the following: History of hip or vertebral fracture. T-score = -2.5 (DXA) at the femoral neck, total hip, or spine, afterappropriate evaluation to exclude secondary causes. Low bone mass (T-score between -1.0 and -2.5 at the femoral neck or spine)AND a 10-year probability of a hip fracture = 3% OR a 10-year probability of a majorosteoporosis-related fracture = 20% based on the [place]-adapted WHO algorithm Please note that all treatment decisions require clinical judgment andconsideration of individual patient factors, including patient preferences, co- morbidities,previous drug use, risk factors not captured in the FRAX model (e.g., frailty, falls, vitaminD deficiency, increased bone turnover, interval significant decline in bone density) andpossible under- or over-estimation of fracture risk by FRAX. Optional alternative screening schedule based on laverne Brooks., NEJMJanuary 2011 for patients with osteopenia (based on hip BMD T-score) is as follows: * advanced osteopenia (T scores -2.00 to -2.49), BMD testing every year * moderate osteopenia (T scores -1.50 to -1.99), BMD testing every 5years mild osteopenia or normal BMD (T scores -1.50 and higher), BMD testingevery 15 years Adelita Zuniga DO G DXA PROCEDURES Final Resu lt * Hm Colonoscopy (12/11/2018) Colonoscopy completed Anatomical Region Laterality Modality Other us Historical Provider HEALTH MAINTENANCE Final Result * Hepatitis C Screening (01/30/2016) Hepatitis C Screening negative us Historical Provider HEALTH MAINTENANCE Final Result from Last 3 Months or Most Recently Relevant to Health Maintenance Insurance [facility] MEDIC[facility] Member Subscriber Plan / Payer (Ef fective 2023-Present) Name:AGUSTIN PLATA Relation to Subscriber:Self Name:Agustin Plata Payer ID:[id number] Group ID:[id number] Type:Not on file Address: [place] [address] [place] [address] Care Teams Medication Tech Relationship Specialty Start Date End Date El Callejas MD [address] [place] [id number] PCP - General Internal Medicine 01/26/21
--- NOTE | 2025-02-23 08:55 | MHC.OFFVIS ---
Vital Signs 02/23/25 08:59 Height 5 ft 3 in Weight 200 lb BMI 35.4 Intake Visit Reasons: Left knee pain Intake Note: Leslie is a 69 year old female who presents with complaints of progressively worsening left knee pain. She describes her pain as sharp and severe in nature. Her pain has gotten worse over the last few years in spite of continued non operative treatments. The patient did undergo right total knee replacement surgery several years ago. She reports minimal discomfort in her right knee. At this point her left knee pain is interfering with her activities of daily living and her ability to sleep well through the night. She has tried physical therapy which aggravated her pain. She has also tried Tylenol, anti-inflammatory medicines and a home exercise program which gave her no relief. The patient has difficulty walking even short distances because of her left knee pain. Allergies buprenorphine (From Suboxone) Allergy (Mild, Verified 02/05/25 11:25) unknow codeine Allergy (Mild, Verified 02/05/25 11:25) vomitting latex Allergy (Mild, Verified 02/05/25 11:25) hives naloxone (From Suboxone) Allergy (Mild, Verified 02/05/25 11:25) unknow Medication List - Last Reviewed 02/23/25 by Dotty Wilkins amoxicillin 2,000 mg (4 x 500 mg) PO ONCE atorvastatin 20 mg PO BEDTIME cholecalciferol (vitamin D3) 50 mcg PO DAILY cyanocobalamin (vitamin B-12) 1,000 mcg PO DAILY levothyroxine 13 mcg PO DAILY linaclotide (Linzess) 72 mcg PO DAILY methocarbamol 500 mg PO BEDTIME milnacipran (Savella) 100 mg PO BID 30 days omeprazole 10 mg PO DAILY [facility] Medical History (Updated 02/05/25 @ 11:38 by Lamont Romero DO) Fibromyalgia Surgical History (Updated 11/23/22 @ 11:12 by NATE Liriano) History of total right knee replacement Social History (Updated 11/23/22 @ 11:11 by NATE Liriano) Current occupational status: disabled 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 Physical Exam Const Other: Well-nourished well-developed very friendly female awake alert and oriented x3 in no acute distress Extrem Other: Left knee examination shows a minimal effusion, palpable crepitus with range of motion, pain with range of motion, range of motion from -3 degrees to 115 degrees, no instability Results Reviewed Results Reviewed: X-rays of the patient's left knee taken today show end-stage degenerative joint disease with grade 4 [id number] arthritis in the lateral compartment, subchondral sclerosis, osteophyte formation, no acute bony abnormalities Assessment & Plan Assessment & Plan (1) Left knee pain: Code(s): M25.562 - Pain in left knee Category: Medical (2) Arthritis of left knee: Code(s): M17.12 - Unilateral primary osteoarthritis, left knee Category: Medical Plan Ms. Del Rosario presents with progressively worsening left knee pain due to end-stage degenerative joint disease. I had a lengthy discussion with the patient regarding the treatment options. At this point she has failed continued non operative treatments. The risks and benefits of left total knee replacement surgery were discussed at length with the patient. The patient wishes to proceed with surgery. She will be scheduled for next available date. I will see her back prior to her surgery to answer any final questions that she might have. Feel free to call me at any time should questions regarding her orthopedic management arise. I spent 21 minutes in reviewing the patient's records and imaging studies, seeing the patient and documenting in the medical record. Orders: Orders XR knee LT 3V Today M25.562 - Pain in left knee Coding Level of Care Code Est Pt Level 3 (16673) Complex visit Add On G2211 Diagnoses Left knee pain M25.562 Arthritis of left knee M17.12
[2025-02-23 08:59] VITALS: BMI 35.4
== END 2025-02-23 09:10 | disposition home or self-care (01) ==
LOC: HO.HOS 08:44
PROVIDERS: PCP Internal Medicine; Visit Provider Orthopaedic Surgery
DX: M25.562 Pain in left knee (principal); M17.12 Unilateral primary osteoarthritis, left knee
CPT/HCPCS: 99213; G2211

== ENCOUNTER → 2025-02-23 08:46 | Outpatient (BNV) | payer OTHER, SELFPAY | PROVIDERS: Visit Provider Radiology Diagnostic Radiology | DX: M17.12 Unilateral primary osteoarthritis, left knee (principal) | CPT/HCPCS: 73562 ==